=== PATIENT | female | born 1940 | race Caucasian/White ===

== ENCOUNTER 2016-12-16 19:12 | Emergency (ER) | payer BC, OTHER ==
[~2016-12-16] VITALS: Ht 170.2 cm; Wt 99.8 kg
[~2016-12-16 19:12] MED LIST: BENA20TA2 PO; GEMF600T3 PO
[2016-12-16] MEDS ORDERED: ONDANSETRON PF 4 MG/2 ML VIAL. IV ONE (20:30)
[2016-12-16 20:51] LABS: BASO % 1 % (0-3); EOS % 1 % (0-3); HEMATOCRIT 44.9 % (36.0-47.0); HEMOGLOBIN 15.8 g/dL (12.0-15.5); LYMPH % 22 % (24-48); MEAN CORPUSCULAR HEMOGLOBIN 31 pg (25-35); MEAN CORPUSCULAR HGB CONC 35 g/dL (31-37); MEAN CORPUSCULAR VOLUME 89 fL (79-100); MONO % 8 % (0-9); NEUT % 69 % (31-73); PLATELET COUNT 206 x10^3/uL (140-400); RED BLOOD COUNT 5.05 x10^6/uL (3.50-5.40); RED CELL DISTRIBUTION WIDTH 14.3 % (11.5-14.5); WHITE BLOOD COUNT 9.4 x10^3/uL (4.0-11.0)
[2016-12-16] MEDS ORDERED: ONDANSETRON ODT 4 MG TAB.RAPDIS. PO ONE (21:00)
[2016-12-16 21:26] LABS: CALCIUM 9.4 mg/dL (8.5-10.1); CREATININE 0.8 mg/dL (0.6-1.0); GFR 69.6; POTASSIUM 4.7 mmol/L (3.5-5.1)
[2016-12-16 21:32] LABS: ALBUMIN 3.7 g/dL (3.4-5.0); ALBUMIN/GLOBULIN RATIO 1.1 (1.0-1.7); TOTAL BILIRUBIN 0.2 mg/dL (0.2-1.0); TOTAL PROTEIN 7.2 g/dL (6.4-8.2)
--- NOTE | 2016-12-16 21:57 | RAD ---
PROCEDURE CT head without contrast dated 12/16/2016. HISTORY Dizziness and vertigo. TECHNIQUE Contiguous axial imaging of the head was performed from skull base to vertex.Exposure: One or more of the following individualized dose reduction techniques were utilized for this exam: 1. Automated exposure control. 2. Adjustment of the mA and/or kV according to patient size. 3. Use of iterative reconstruction technique. COMPARISON 04/11/2016. FINDINGS Ventricles and sulci are mildly prominent for age. No midline shift or mass effect. Mild patchy low density in the deep/subcortical periventricular white matter, unchanged. No hemorrhage or extra-axial collection. Posterior fossa and brainstem unremarkable. Visualized paranasal sinuses and mastoid air cells are clear. No acute calvarial abnormality. IMPRESSION - No evidence of acute intracranial hemorrhage or mass. - Mild chronic small vessel ischemic changes and atrophy. Electronically signed by: Anatoliy Nichols (December 16, 2016 21:55:53)
[2016-12-16 22:06] LABS: BILIRUBIN,URINE NEGATIVE (NEG); GLUCOSE,URINE NEGATIVE (NEG); NITRITE,URINE NEGATIVE (NEG); PROTEIN,URINE NEGATIVE (NEG-TRACE); UROBILINOGEN,URINE 0.2 mg/dL (0.2 mg/dL)
[2016-12-16 22:13] LABS: BACTERIA,URINE FEW /HPF (0-FEW); RBC,URINE OCC /HPF (0-2); SQUAMOUS EPITHELIAL CELL,UR FEW /LPF
[2016-12-16 22:28] VITALS: BP 141/65
--- NOTE | 2016-12-17 00:08 | ED.ADGEN ---
Past Medical History Past Medical History: High Cholesterol, Hypertension, Other Additional Past Medical Histor: Macular degeneration, vertigo Past Surgical History: Cholecystectomy, Hysterectomy, Other Additional Past Surgical Histo: ankle, breast biopsy, sinus Alcohol Use: None Drug Use: None Adult General Chief Complaint Chief Complaint: NAUSEA/VOMITING/DIARRHA HPI HPI Patient is a 76 year old history of chronic intermittent vertigo who presents with vertigo starting this morning. Patient reports a dizziness upon standing and walking early this morning along with nausea. Patient took meclizine 1 with symptomatic improvement. She is no longer nauseated and states she can walk without concern for Falling. Patient is concerned that she may have a TIA or stroke. She denies headache, change in vision, difficulty swallowing, extremity weakness or loss of sensation or leaning to one side. She reports mild headache, but states symptoms of vertigo are similar to previous episodes. Patient states she does not like to take meclizine more than once daily as she is very sensitive to medications. Review of Systems Review of Systems ROS as per HPI Current Medications Current Medications Current Medications Medications (Trade) Dose Ordered Sig/Mirna Start Time Stop Time Status Last Admin Dose Admin Ondansetron HCl (Zofran Odt) 4 mg 1X ONCE 12/16/16 21:00 12/16/16 21:01 DC 12/16/16 21:12 4 MG Ondansetron HCl (Zofran) 4 mg 1X ONCE 12/16/16 20:30 12/16/16 20:31 DC 12/16/16 20:41 4 MG Allergies Allergies Allergies Coded Allergies Type Severity Reaction Last Updated Verified No Known Drug Allergies 06/29/15 No Physical Exam Physical Exam Constitutional: Well developed, well nourished, no acute distress, non-toxic appearance. [] HENT: Normocephalic, atraumatic, bilateral external ears normal, oropharynx moist, no oral exudates, nose normal. [] Eyes: PERRLA, EOMI, conjunctiva normal, no discharge.horizontal nystagmus, fatigues on evaluation. Neck: Normal range of motion, no tenderness, supple, no stridor. [] Cardiovascular:Heart rate regular rhythm, no murmur [] Lungs & Thorax: Bilateral breath sounds clear to auscultation [] Abdomen: Bowel sounds normal, soft, no tenderness, no masses, no pulsatile masses. [] Skin: Warm, dry, no erythema, no rash. [] Back: No tenderness, no CVA tenderness. [] Extremities: No tenderness, no cyanosis, no clubbing, ROM intact, no edema. [] Neurologic: Alert and oriented X 3, cranial nerves II through XII grossly intact ,normal motor function, normal sensory function, no focal deficits noted. [] Psychologic: Affect normal, judgement normal, mood normal. [] Current Patient Data Vital Signs Vital Signs Date Time Temp Pulse Resp B/P (MAP) Pulse Ox O2 Delivery O2 Flow Rate FiO2 12/16/16 22:28 88 20 141/65 (90) 93 Room Air 12/16/16 19:55 98.5 98.5 Lab Values Laboratory Tests Test 12/16/16 20:35 12/16/16 21:00 12/16/16 21:50 White Blood Count 9.4 x10^3/uL (4.0-11.0) Red Blood Count 5.05 x10^6/uL (3.50-5.40) Hemoglobin 15.8 g/dL (12.0-15.5) H Hematocrit 44.9 % (36.0-47.0) Mean Corpuscular Volume 89 fL (79-100) Mean Corpuscular Hemoglobin 31 pg (25-35) Mean Corpuscular Hemoglobin Concent 35 g/dL (31-37) Red Cell Distribution Width 14.3 % (11.5-14.5) Platelet Count 206 x10^3/uL (140-400) Neutrophils (%) (Auto) 69 % (31-73) Lymphocytes (%) (Auto) 22 % (24-48) L Monocytes (%) (Auto) 8 % (0-9) Eosinophils (%) (Auto) 1 % (0-3) Basophils (%) (Auto) 1 % (0-3) Neutrophils # (Auto) 6.5 x10^3uL (1.8-7.7) Lymphocytes # (Auto) 2.0 x10^3/uL (1.0-4.8) Monocytes # (Auto) 0.7 x10^3/uL (0.0-1.1) Eosinophils # (Auto) 0.1 x10^3/uL (0.0-0.7) Basophils # (Auto) 0.0 x10^3/uL (0.0-0.2) Sodium Level 142 mmol/L (136-145) Potassium Level 4.7 mmol/L (3.5-5.1) Chloride Level 106 mmol/L (98-107) Carbon Dioxide Level 29 mmol/L (21-32) Anion Gap 7 (6-14) Blood Urea Nitrogen 15 mg/dL (7-20) Creatinine 0.8 mg/dL (0.6-1.0) Estimated GFR (Cockcroft-Gault) 69.6 BUN/Creatinine Ratio 19 (6-20) Glucose Level 111 mg/dL (70-99) H Calcium Level 9.4 mg/dL (8.5-10.1) Total Bilirubin 0.2 mg/dL (0.2-1.0) Aspartate Amino Transferase (AST) 39 U/L (15-37) H Alanine Aminotransferase (ALT) 54 U/L (14-59) Alkaline Phosphatase 88 U/L (46-116) Troponin I Quantitative < 0.017 ng/mL (0.000-0.055) Total Protein 7.2 g/dL (6.4-8.2) Albumin 3.7 g/dL (3.4-5.0) Albumin/Globulin Ratio 1.1 (1.0-1.7) Lipase 95 U/L (73-393) Urine Collection Type Unknown Urine Color Yellow Urine Clarity Clear Urine pH 5.0 Urine Specific [place] 1.015 Urine Protein Negative mg/dL (NEG-TRACE) Urine Glucose (UA) Negative mg/dL (NEG) Urine Ketones (Stick) Negative mg/dL (NEG) Urine Blood Trace (NEG) Urine Nitrite Negative (NEG) Urine Bilirubin Negative (NEG) Urine Urobilinogen Dipstick 0.2 mg/dL (0.2 mg/dL) Urine Leukocyte Esterase Trace (NEG) Urine RBC Occ /HPF (0-2) Urine WBC 1-4 /HPF (0-4) Urine Squamous Epithelial Cells Few /LPF Urine Bacteria Few /HPF (0-FEW) Urine Mucus Slight /LPF Laboratory Tests 12/16/16 20:35 Laboratory Tests 12/16/16 21:00 EKG EKG [EKG: Normal sinus rhythm, no acute ST-T wave changes.] Radiology/Procedures Radiology/Procedures [CT head: Nonacute.] Course & Med Decision Making Course & Med Decision Making Pertinent Labs and Imaging studies reviewed. (See chart for details) [Patient's dizziness resolved with meclizine in the emergency department. CT head nonacute, no focal neurologic deficits noted on evaluation. Recommend continued supportive care with PCP follow-up if symptoms persist. Return precautions reviewed. Patient verbalizes understanding and agreement with discharge instructions prior to departure.] Dragon Disclaimer Dragon Disclaimer This electronic medical record was generated, in whole or in part, using a voice recognition dictation system. FANI ALVAREZ DO December 17, 2016 00:08
--- NOTE | 2016-12-17 06:47 | EKG ---
[facility] [address] [place] [address] Test Date: 2016-12-16 Test Time: 20:32:45 Pat Name: MICKIE MUSE Department: Room: Gender: F Floral Manager: : 1940 Requested By: FANI ALVAREZ Order Number: [id number] Reading MD: Jaspal Snyder Measurements Intervals [place] Rate: 96 P: 50 RI: 230 QRS: 22 QRSD: 72 T: 56 QT: 340 QTc: 430 Interpretive Statements SINUS RHYTHM PROLONGED RI INTERVAL Electronically Signed On 12-17-2016 10:54:27 CDT by Jaspal Snyder
== END 2016-12-16 22:50 | disposition home or self-care (01) ==
LOC: ER 19:12
DX: R42 Dizziness and giddiness (principal); R11.0 Nausea; I10 Essential (primary) hypertension; E78.00 Pure hypercholesterolemia, unspecified; Z90.49 Acquired absence of other specified parts of digestive tract; Z90.710 Acquired absence of both cervix and uterus
CPT/HCPCS: 36415; 70450; 80053; 81001; 83690; 84484; 85027; 87086; 93005; 96374; 99285; J2405; Q0162

== ENCOUNTER → 2017-01-27 | Outpatient (CLI) | payer BC, OTHER ==
--- NOTE | 2017-01-27 15:15 | RAD ---
DATE: January 27, 2017 EXAM: DIGITAL SCREEN BILAT W/CAD HISTORY: Screening study. COMPARISON: 2013 through 2015 This study was interpreted with the benefit of Computerized Aided Detection (CAD). FINDINGS: The breast parenchyma shows scattered fibroglandular densities. There are no dominant suspicious masses, suspicious microcalcifications or evidence of architectural distortion. Right breast nodularity is stable. IMPRESSION: No mammographic indicators for malignancy. BI-RADS CATEGORY: 2 BENIGN FINDING RECOMMENDED FOLLOW-UP: 12M 12 MONTH FOLLOW-UP PQRS compliance statement: Patient information was entered into a reminder system with a target due date January 28, 2018 for the next mammogram. Mammography is a sensitive method for finding small breast cancers, but it does not detect them all and is not a substitute for careful clinical examination. A negative mammogram does not negate a clinically suspicious finding and should not result in delay in biopsying a clinically suspicious abnormality. "Our facility is accredited by the [employer]ammography [employer]." The patient's breast density may affect the ability of mammography to detect breast cancer. There are 4 categories of breast density, A, B, C and D. Breast density A means that most of the breast tissue is replaced with adipose tissue and therefore is not dense. Breast density B means that the breast tissue is mildly dense and scattered. Breast density C means that the breast tissue is heterogeneously dense. Breast density D means that the breast tissue is very dense. Breast densities especially C and D may decrease the sensitivity of mammography to detect breast cancer. Therefore, the patient may benefit from 3-D breast mammography (3D breast tomography) as a part of their screening mammogram. Insurance may or may not pay for this additional imaging. The patient's breast density based on today's mammogram is category B.
== END | disposition home or self-care (01) ==
LOC: MAMMO 13:01
PROVIDERS: ATTEND Family Medicine
DX: Z12.31 Encounter for screening mammogram for malignant neoplasm of breast (principal)
CPT/HCPCS: G0202; 77067

== ENCOUNTER → 2017-05-22 | Day surgery (SDC) | payer BC, OTHER ==
[~2017-05-22] MED LIST changes: +IV RINGERS,LACTATED 1000ML 1,000 ML IV ONE; +LIDOCAINE 2% PF Vial for OR 5 ML VIAL. ONE; +LORA0.5T PO; +PROPOFOL 60 ML IV ONE; +TRIA1CAP3 PO
[2017-05-22 11:39] VITALS: BP 139/62
== END | disposition home or self-care (01) ==
LOC: ENDOS 08:53
PROVIDERS: ATTEND Internal Medicine Gastroenterology
DX: Z09 Encounter for follow-up examination after completed treatment for conditions other than malignant neoplasm (principal); Z87.19 Personal history of other diseases of the digestive system; D12.2 Benign neoplasm of ascending colon; K64.0 First degree hemorrhoids; K21.0 Gastro-esophageal reflux disease with esophagitis; K31.89 Other diseases of stomach and duodenum; E78.00 Pure hypercholesterolemia, unspecified; I10 Essential (primary) hypertension; F41.9 Anxiety disorder, unspecified; Z90.710 Acquired absence of both cervix and uterus; Z90.49 Acquired absence of other specified parts of digestive tract
CPT/HCPCS: 43239; 45385; J2704; J2001

== ENCOUNTER → 2017-12-26 | Outpatient (CLI) | payer BC, OTHER ==
[~2017-12-26] MED LIST changes: -BENA20TA2 PO; +CONTRAST GIVEN MC; -GEMF600T3 PO; -IV RINGERS,LACTATED 1000ML 1,000 ML IV ONE; -LIDOCAINE 2% PF Vial for OR 5 ML VIAL. ONE; -LORA0.5T PO; -PROPOFOL 60 ML IV ONE; -TRIA1CAP3 PO
[2017-12-26] MEDS: IOHEXOL 240 MG/ML 50ML VIAL. PO (09:30)
[2017-12-26] MEDS: IOHEXOL 300 MG/ML 100ML VIAL. IV (09:30)
== END | disposition home or self-care (01) ==
LOC: CT 11:59
DX: C18.2 Malignant neoplasm of ascending colon (principal); D12.2 Benign neoplasm of ascending colon
CPT/HCPCS: 71260; 74177; Q9966; Q9967

== ENCOUNTER → 2018-01-28 | Outpatient (CLI) | payer BC, OTHER | END | disposition home or self-care (01) | LOC: MAMMO 08:00 | DX: Z12.31 Encounter for screening mammogram for malignant neoplasm of breast (principal) | CPT/HCPCS: 77063; 77067 ==

== ENCOUNTER 2018-03-07 19:14 | Emergency (ER) | payer BC, OTHER ==
[2018-03-07 20:18] LABS: ADD MAN DIFF? NO
[2018-03-07] MEDS: ONDANSETRON PF 4 MG/2 ML VIAL. IV (20:19)
[2018-03-07 20:20] LABS: BASO # 0.1 x10^3/uL (0.0-0.2); BASO % 1 % (0-3); EOS # 0.1 x10^3/uL (0.0-0.7); EOS % 1 % (0-3); HEMATOCRIT 48.9 % (36.0-47.0); HEMOGLOBIN 16.8 g/dL (12.0-15.5); LYMPH # 1.7 x10^3/uL (1.0-4.8); LYMPH % 21 % (24-48); MEAN CORPUSCULAR HEMOGLOBIN 31 pg (25-35); MEAN CORPUSCULAR HGB CONC 34 g/dL (31-37); MEAN CORPUSCULAR VOLUME 89 fL (79-100); MONO # 0.5 x10^3/uL (0.0-1.1); MONO % 7 % (0-9); NEUT # 5.7 x10^3uL (1.8-7.7); NEUT % 71 % (31-73); PLATELET COUNT 153 x10^3/uL (140-400); RED BLOOD COUNT 5.49 x10^6/uL (3.50-5.40); RED CELL DISTRIBUTION WIDTH 14.4 % (11.5-14.5)
[2018-03-07] MEDS: IV NORMAL SALINE 1000ML BAG 1,000 ML IV (20:20)
[2018-03-07 20:22] LABS: BILIRUBIN,URINE NEGATIVE (NEG); CLARITY,URINE CLEAR; COLOR,URINE YELLOW; GLUCOSE,URINE NEGATIVE (NEG); NITRITE,URINE NEGATIVE (NEG); PH,URINE 7.5; PROTEIN,URINE NEGATIVE (NEG-TRACE); UROBILINOGEN,URINE 0.2 mg/dL (0.2 mg/dL)
[2018-03-07 20:29] LABS: AMPHETAMINE/METHAMPHETAMINE NEG (NEG); BARBITURATES NEG (NEG); BENZODIAZEPINES NEG (NEG); CANNABINOIDS NEG (NEG); COCAINE NEG (NEG); ETHANOL, URINE NEG (NEG); METHADONE NEG (NEG); OPIATES NEG (NEG); PHENCYCLIDINE NEG (NEG)
[2018-03-07 20:34] LABS: BACTERIA,URINE MODERATE /HPF (0-FEW); SQUAMOUS EPITHELIAL CELL,UR MOD /LPF
[2018-03-07 20:35] LABS: RBC,URINE 0 /HPF (0-2); WBC,URINE OCC /HPF (0-4)
[2018-03-07 21:00] LABS: ANION GAP 11 (6-14); BLOOD UREA NITROGEN 10 mg/dL (7-20); BUN/CREATININE RATIO 14 (6-20); CARBON DIOXIDE 26 mmol/L (21-32); CHLORIDE 104 mmol/L (98-107); CREATININE 0.7 mg/dL (0.6-1.0); GFR 80.9; GLUCOSE 115 mg/dL (70-99); POTASSIUM 3.5 mmol/L (3.5-5.1); SODIUM 141 mmol/L (136-145)
[2018-03-07 21:06] LABS: ALBUMIN 3.6 g/dL (3.4-5.0); ALBUMIN/GLOBULIN RATIO 0.9 (1.0-1.7); ALK PHOS 92 U/L (46-116); ALT (SGPT) 104 U/L (14-59); AST (SGOT) 63 U/L (15-37); TOTAL BILIRUBIN 0.5 mg/dL (0.2-1.0); TOTAL PROTEIN 7.5 g/dL (6.4-8.2)
[2018-03-07 21:08] LABS: TROPONINI < 0.017 ng/mL (0.000-0.055)
== END 2018-03-07 22:29 | disposition home or self-care (01) ==
LOC: ER 22:29
DX: R42 Dizziness and giddiness (principal); R11.2 Nausea with vomiting, unspecified; E86.0 Dehydration; R74.0 Nonspecific elevation of levels of transaminase and lactic acid dehydrogenase [LDH]; F41.9 Anxiety disorder, unspecified; E78.00 Pure hypercholesterolemia, unspecified; I10 Essential (primary) hypertension; Z90.49 Acquired absence of other specified parts of digestive tract; Z90.710 Acquired absence of both cervix and uterus
CPT/HCPCS: 36415; 80053; 80307; 81001; 83735; 84484; 85025; 87086; 93005; 96361; 96374; 96375; 99285-25; J2060; J2405; J7030

== ENCOUNTER 2018-05-25 14:11 | Emergency (ER) | payer BC, OTHER ==
[~2018-05-25] VITALS: Ht 170.2 cm; Wt 100.7 kg
[~2018-05-25 14:11] MED LIST changes: +BENA20TA4 PO; -CONTRAST GIVEN MC; +GEMF600T4 PO; +LORA0.5T PO; +NITR100C62 PO; +ONDA4TAB10 SL; +PHEN-318 PO; +TRIA1CAP3 PO
[2018-05-25 15:09] LABS: BASO % 1 % (0-3); EOS # 0.1 x10^3/uL (0.0-0.7); EOS % 2 % (0-3); HEMATOCRIT 45.3 % (36.0-47.0); HEMOGLOBIN 15.8 g/dL (12.0-15.5); LYMPH # 2.1 x10^3/uL (1.0-4.8); LYMPH % 31 % (24-48); MEAN CORPUSCULAR HEMOGLOBIN 32 pg (25-35); MEAN CORPUSCULAR HGB CONC 35 g/dL (31-37); MEAN CORPUSCULAR VOLUME 91 fL (79-100); MONO # 0.5 x10^3/uL (0.0-1.1); MONO % 8 % (0-9); NEUT # 4.1 x10^3uL (1.8-7.7); NEUT % 59 % (31-73); PLATELET COUNT 154 x10^3/uL (140-400); RED CELL DISTRIBUTION WIDTH 14.5 % (11.5-14.5); WHITE BLOOD COUNT 6.9 x10^3/uL (4.0-11.0)
[2018-05-25 15:16] LABS: CALCIUM 10.1 mg/dL (8.5-10.1); CREATININE 0.7 mg/dL (0.6-1.0); GFR 80.9; POTASSIUM 3.9 mmol/L (3.5-5.1)
--- NOTE | 2018-05-25 15:18 | RAD ---
PQRS Compliance Statement: One or more of the following individualized dose reduction techniques were utilized for this examination: 1. Automated exposure control 2. Adjustment of the mA and/or kV according to patient size 3. Use of iterative reconstruction technique CT HEAD WITHOUT CONTRAST History: HEADACHE, HX OF TIA Comparison: CT head without contrast, December 16, 2016. Technique: Axial images are obtained of the head from the skull base through the vertex without IV contrast. Findings: No mass-effect, midline shift, extra-axial fluid collection, hemorrhage, or obvious acute infarction is identified. Basilar cisterns are patent. The ventricles and sulci are normal for patient age. There is periventricular white matter hypoattenuation. This is a nonspecific finding but is commonly due to chronic small vessel ischemic disease. Bone windows demonstrate no acute calvarial abnormality. The visualized paranasal sinuses are clear. Mastoid air cells are well aerated. IMPRESSION: 1. No acute intracranial abnormality. 2. Mild periventricular white matter changes of chronic small vessel ischemic disease. Electronically signed by: Xu Devries MD (05/25/2018 3:15 PM) [id number]
[2018-05-25 15:22] LABS: ALBUMIN 3.7 g/dL (3.4-5.0); ALBUMIN/GLOBULIN RATIO 0.8 (1.0-1.7); TOTAL BILIRUBIN 0.4 mg/dL (0.2-1.0); TOTAL PROTEIN 8.1 g/dL (6.4-8.2)
[2018-05-25 15:39] LABS: BILIRUBIN,URINE NEGATIVE (NEG); CLARITY,URINE CLEAR; COLOR,URINE YELLOW; NITRITE,URINE NEGATIVE (NEG); PROTEIN,URINE NEGATIVE (NEG-TRACE); UROBILINOGEN,URINE 0.2 mg/dL (0.2 mg/dL)
[2018-05-25] MEDS ORDERED: IV NORMAL SALINE 1000ML BAG 1,000 ML IV ONE (15:45)
[2018-05-25 16:07] LABS: RBC,URINE OCC /HPF (0-2)
[2018-05-25 16:08] LABS: BACTERIA,URINE MODERATE /HPF (0-FEW); SQUAMOUS EPITHELIAL CELL,UR MANY /LPF
--- NOTE | 2018-05-25 17:11 | PHYS DOC ---
Past Medical History Past Medical History: Anxiety, High Cholesterol, Hypertension, TIA, Other Additional Past Medical Histor: Macular degeneration, vertigo Past Surgical History: Cholecystectomy, Hysterectomy, Other Additional Past Surgical Histo: ankle, breast biopsy, sinus Additional Information: .05 PPD Alcohol Use: None Drug Use: None Adult General Chief Complaint Chief Complaint: HEADACHE HPI HPI Patient is a 77 year old [f__sex] who presents with [] Review of Systems Review of Systems Constitutional: Denies fever or chills [] Eyes: Denies change in visual acuity, redness, or eye pain [] HENT: Denies nasal congestion or sore throat [] Respiratory: Denies cough or shortness of breath [] Cardiovascular: No additional information not addressed in HPI [] GI: Denies abdominal pain, nausea, vomiting, bloody stools or diarrhea [] : Denies dysuria or hematuria [] Musculoskeletal: Denies back pain or joint pain [] Integument: Denies rash or skin lesions [] Neurologic: Denies headache, focal weakness or sensory changes [] Endocrine: Denies polyuria or polydipsia [] All other systems were reviewed and found to be within normal limits, except as documented in this note. Current Medications Current Medications Current Medications Medications (Trade) Dose Ordered Sig/Mirna Start Time Stop Time Status Last Admin Dose Admin Sodium Chloride 1,000 ml @ 1,000 mls/hr 1X ONCE 05/25/18 15:45 05/25/18 16:44 DC 05/25/18 16:00 1,000 MLS/HR Allergies Allergies Allergies Coded Allergies Type Severity Reaction Last Updated Verified No Known Drug Allergies 05/22/17 No Physical Exam Physical Exam Constitutional: Well developed, well nourished, no acute distress, non-toxic appearance. [] HENT: Normocephalic, atraumatic, bilateral external ears normal, oropharynx moist, no oral exudates, nose normal. [] Eyes: PERRLA, EOMI, conjunctiva normal, no discharge. [] Neck: Normal range of motion, no tenderness, supple, no stridor. [] Cardiovascular:Heart rate regular rhythm, no murmur [] Lungs & Thorax: Bilateral breath sounds clear to auscultation [] Abdomen: Bowel sounds normal, soft, no tenderness, no masses, no pulsatile masses. [] Skin: Warm, dry, no erythema, no rash. [] Back: No tenderness, no CVA tenderness. [] Extremities: No tenderness, no cyanosis, no clubbing, ROM intact, no edema. [] Neurologic: Alert and oriented X 3, normal motor function, normal sensory function, no focal deficits noted. [] Psychologic: Affect normal, judgement normal, mood normal. [] Current Patient Data Vital Signs Vital Signs Date Time Temp Pulse Resp B/P (MAP) Pulse Ox O2 Delivery O2 Flow Rate FiO2 05/25/18 14:18 97.9 89 20 165/75 (105) 97 Room Air 97.9 Lab Values Laboratory Tests Test 05/25/18 14:56 05/25/18 15:14 05/25/18 15:24 White Blood Count 6.9 x10^3/uL (4.0-11.0) Red Blood Count 5.00 x10^6/uL (3.50-5.40) Hemoglobin 15.8 g/dL (12.0-15.5) H Hematocrit 45.3 % (36.0-47.0) Mean Corpuscular Volume 91 fL (79-100) Mean Corpuscular Hemoglobin 32 pg (25-35) Mean Corpuscular Hemoglobin Concent 35 g/dL (31-37) Red Cell Distribution Width 14.5 % (11.5-14.5) Platelet Count 154 x10^3/uL (140-400) Neutrophils (%) (Auto) 59 % (31-73) Lymphocytes (%) (Auto) 31 % (24-48) Monocytes (%) (Auto) 8 % (0-9) Eosinophils (%) (Auto) 2 % (0-3) Basophils (%) (Auto) 1 % (0-3) Neutrophils # (Auto) 4.1 x10^3uL (1.8-7.7) Lymphocytes # (Auto) 2.1 x10^3/uL (1.0-4.8) Monocytes # (Auto) 0.5 x10^3/uL (0.0-1.1) Eosinophils # (Auto) 0.1 x10^3/uL (0.0-0.7) Basophils # (Auto) 0.0 x10^3/uL (0.0-0.2) Sodium Level 142 mmol/L (136-145) Potassium Level 3.9 mmol/L (3.5-5.1) Chloride Level 105 mmol/L (98-107) Carbon Dioxide Level 29 mmol/L (21-32) Anion Gap 8 (6-14) Blood Urea Nitrogen 11 mg/dL (7-20) Creatinine 0.7 mg/dL (0.6-1.0) Estimated GFR (Cockcroft-Gault) 80.9 BUN/Creatinine Ratio 16 (6-20) Glucose Level 100 mg/dL (70-99) H Calcium Level 10.1 mg/dL (8.5-10.1) Total Bilirubin 0.4 mg/dL (0.2-1.0) Aspartate Amino Transferase (AST) 53 U/L (15-37) H Alanine Aminotransferase (ALT) 90 U/L (14-59) H Alkaline Phosphatase 97 U/L (46-116) Total Protein 8.1 g/dL (6.4-8.2) Albumin 3.7 g/dL (3.4-5.0) Albumin/Globulin Ratio 0.8 (1.0-1.7) L Lactic Acid Level 1.5 mmol/L (0.4-2.0) Urine Collection Type Unknown Urine Color Yellow Urine Clarity Clear Urine pH 6.0 Urine Specific [place] 1.010 Urine Protein Negative mg/dL (NEG-TRACE) Urine Glucose (UA) Negative mg/dL (NEG) Urine Ketones (Stick) Negative mg/dL (NEG) Urine Blood Negative (NEG) Urine Nitrite Negative (NEG) Urine Bilirubin Negative (NEG) Urine Urobilinogen Dipstick 0.2 mg/dL (0.2 mg/dL) Urine Leukocyte Esterase Small (NEG) Urine RBC Occ /HPF (0-2) Urine WBC 1-4 /HPF (0-4) Urine Squamous Epithelial Cells Many /LPF Urine Bacteria Moderate /HPF (0-FEW) Urine Mucus Slight /LPF Laboratory Tests 05/25/18 14:56 Laboratory Tests 05/25/18 14:56 EKG EKG [] Radiology/Procedures Radiology/Procedures [] Course & Med Decision Making Course & Med Decision Making Pertinent Labs and Imaging studies reviewed. (See chart for details) [] Dragon Disclaimer Dragon Disclaimer This electronic medical record was generated, in whole or in part, using a voice recognition dictation system. Departure Departure Impression: Primary Impression: Headache Disposition: 01 HOME, SELF-CARE Condition: STABLE Referrals: OTIS CHRISTENSEN MD (PCP) Patient Instructions: General Headache Without Cause Additional Instructions: Follow-up with your primary care provider in 2 days for recheck. If worsening return immediately to the emergency department. BETH ROGEL APRN May 25, 2018 17:11
[2018-05-25 17:47] VITALS: BP 149/67
== END 2018-05-25 17:48 | disposition home or self-care (01) ==
LOC: ER 14:11
DX: R51 Headache (principal); I10 Essential (primary) hypertension; E78.00 Pure hypercholesterolemia, unspecified; Z86.73 Personal history of transient ischemic attack (TIA), and cerebral infarction without residual deficits; Z90.49 Acquired absence of other specified parts of digestive tract; Z90.710 Acquired absence of both cervix and uterus
CPT/HCPCS: 36415; 70450; 80053; 81001; 83605; 85025; 87086; 99285; J7030

== ENCOUNTER → 2018-11-05 | Day surgery (SDC) | payer BC, OTHER ==
[~2018-11-05] MED LIST changes: -GEMF600T4 PO; +GEMF600T8 PO; +HYDROmorphone 2 MG/ML VIAL IV PRN; +IV RINGERS,LACTATED 1000ML 1,000 ML IV SCH; +LIDOCAINE 2% PF 5 ML VIAL. ONE; +MORPHINE SULFATE 2 MG/ML VIAL. IV PRN; +ONDANSETRON PF 4 MG/2 ML VIAL. IV PRN; +PROCHLORPERAZINE 10 MG/2 ML VIAL. IV PRN; +PROPOFOL 20 ML IV ONE; +fentaNYL PF VIAL 100 MCG/2 ML VIAL IV PRN
[2018-11-05 10:04] VITALS: BP 163/74
--- NOTE | 2018-11-06 11:09 | PATHOLOGY ---
[facility] Accession Number: [id number] . 01 Material submitted: . PART A: SIGMOID POLYP BIOPSY PART B: RECTAL POLYP BIOPSY . 01 Clinical history: . Hx polyps, family HX CRC . 02 Diagnosis: A. Colon biopsies, sigmoid polyp: - Hyperplastic polyp. . B. Colorectal biopsies, rectal polyps: - Hyperplastic polyps. . (JPM:mm; 11/06/2018) [facility]/11/06/2018 . 02 Comment: There are no adenomatous changes or evidence of malignancy. . (JPM:mml; 11/06/2018) . 02 Electronically signed: . Lenny Garcia MD, Pathologist NPI- [id number] . 01 Gross description: . A. Received in formalin labeled "Holly Holt, sigmoid polyp BX," are 2 segments of gomez soft tissue measuring 0.7 x 0.3 x 0.2 cm in aggregate dimensions and ranging from 0.3 to 0.4 cm in maximum dimension. The specimen is submitted entirely in cassette A1. . B. Received in formalin labeled "Holly Holt, rectal polyp BX," are 3 segments of gomez soft tissue measuring 0.6 x 0.4 x 0.2 cm in aggregate dimensions and ranging from 0.2 to 0.3 cm in maximum dimension. The specimen is submitted entirely in cassette B1. (TSD; 11/05/2018) TOB/TOB . 02 Pathologist provided ICD-10: K63.5, K62.1 . 02 CPT . 077709, 092064 Specimen Comment: A courtesy copy of this report has been sent to Specimen Comment: [phone], . Specimen Comment: Report sent to / DR CHRISTENSEN Performed at: 01 [facility] [address], [place], [place] [id number] MD Nick Lang MD Phone: [phone] Performed at: 02 [facility] [address] [place], [place] [id number] MD Lenny Garcia MD Phone: [phone]
== END | disposition home or self-care (01) ==
LOC: SURG 08:22
PROVIDERS: ATTEND Internal Medicine Gastroenterology
DX: Z09 Encounter for follow-up examination after completed treatment for conditions other than malignant neoplasm (principal); K63.5 Polyp of colon; K62.1 Rectal polyp; K64.0 First degree hemorrhoids; Z86.010 Personal history of colon polyps; Z98.0 Intestinal bypass and anastomosis status; T81.89XA Other complications of procedures, not elsewhere classified, initial encounter; F41.9 Anxiety disorder, unspecified; K21.9 Gastro-esophageal reflux disease without esophagitis; E78.00 Pure hypercholesterolemia, unspecified; I10 Essential (primary) hypertension; Z82.3 Family history of stroke; Z82.49 Family history of ischemic heart disease and other diseases of the circulatory system; Z72.89 Other problems related to lifestyle; F17.210 Nicotine dependence, cigarettes, uncomplicated; Z79.899 Other long term (current) drug therapy; Z90.49 Acquired absence of other specified parts of digestive tract; Z90.710 Acquired absence of both cervix and uterus; Z98.890 Other specified postprocedural states; Y83.2 Surgical operation with anastomosis, bypass or graft as the cause of abnormal reaction of the patient, or of later complication, without mention of misadventure at the time of the procedure; Y92.89 Other specified places as the place of occurrence of the external cause
CPT/HCPCS: 45380; J2001; J2704; 88305

== ENCOUNTER → 2018-12-24 | Outpatient (CLI) | payer BC, OTHER ==
[2018-11-05 10:04] VITALS: BP 163/74
[~2018-12-24] MED LIST changes: +CONTRAST GIVEN. MC PRN; -HYDROmorphone 2 MG/ML VIAL IV PRN; +IOHEXOL 240 MG/ML 50ML VIAL. PO ONE; +IOHEXOL 300 MG/ML 100ML VIAL. IV ONE; -IV RINGERS,LACTATED 1000ML 1,000 ML IV SCH; -LIDOCAINE 2% PF 5 ML VIAL. ONE; -MORPHINE SULFATE 2 MG/ML VIAL. IV PRN; -ONDANSETRON PF 4 MG/2 ML VIAL. IV PRN; -PROCHLORPERAZINE 10 MG/2 ML VIAL. IV PRN; -PROPOFOL 20 ML IV ONE; -fentaNYL PF VIAL 100 MCG/2 ML VIAL IV PRN
--- NOTE | 2018-12-24 15:31 | RAD ---
CT of the chest, abdomen and pelvis with contrast, 12/24/2018: HISTORY: Colonic malignancy Multidetector CT imaging was performed following oral and IV administration of contrast. Comparison is made to a study from 12/26/2017. Several very tiny scattered nodules in both lungs are unchanged suggesting an inflammatory or granulomatous origin. There is minimal dependent atelectasis in both lungs. Respiratory motion artifact degrades image quality in the lung bases. There is no evidence of pleural fluid. There is mild calcific plaquing of the thoracic aorta without evidence of aneurysm. No mediastinal or hilar adenopathy is seen. There is a suggestion of patchy fatty change in the liver. No discrete hepatic mass is evident. The gallbladder appears to be surgically absent. No pancreatic abnormality is seen. The spleen is of normal size. There is a small cyst arising from the lateral aspect of the right kidney. The kidneys show no evidence of obstruction. The adrenal glands are unremarkable. Mild aortoiliac calcific plaquing is present without evidence of aneurysm. No abdominal or pelvic adenopathy is seen. The uterus is surgically absent. There has been a right hemicolectomy. The bowel loops are not dilated. A small hiatal hernia is noted. No free fluid is evident in the abdomen or pelvis. Mild scattered degenerative changes are present in the spine. IMPRESSION: 1. Stable tiny pulmonary nodules which are likely postinflammatory. 2. Additional miscellaneous chronic findings as described above. 3. No significant change since 12/26/2017. PQRS Compliance Statement: One or more of the following individualized dose reduction techniques were utilized for this examination: 1. Automated exposure control 2. Adjustment of the mA and/or kV according to patient size 3. Use of iterative reconstruction technique Electronically signed by: Manav Lopes MD (12/24/2018 3:28 PM) [facility]
== END | disposition home or self-care (01) ==
LOC: CT 13:38
PROVIDERS: ATTEND Internal Medicine Hematology & Oncology
DX: C18.2 Malignant neoplasm of ascending colon (principal); R91.8 Other nonspecific abnormal finding of lung field; K44.9 Diaphragmatic hernia without obstruction or gangrene
CPT/HCPCS: 71260; 74177; Q9967

== ENCOUNTER → 2019-05-05 | Outpatient (CLI) | payer BC, OTHER ==
[2019-01-14 11:35] VITALS: BP 156/62
[~2019-05-05] MED LIST changes: -CONTRAST GIVEN. MC PRN; -IOHEXOL 240 MG/ML 50ML VIAL. PO ONE; -IOHEXOL 300 MG/ML 100ML VIAL. IV ONE; +METR500T PO
--- NOTE | 2019-05-07 08:44 | RAD ---
DATE: 05/05/2019 EXAM: MAMMO ARELY SCREENING BILATERAL HISTORY: Routine screening COMPARISON: The innominate is in the l and then there is the unit one thing that sounded clear, 10 This study was interpreted with the benefit of Computerized Aided Detection (CAD). Breast Density: SCATTERED The breast parenchyma shows scattered fibroglandular densities. Breast parenchyma level B. FINDINGS: Distortion is questioned on tomosynthesis imaging at the 9:00 aspect on CC images and this is located approximately 5.6 cm from nipple. Multiple small masses are present involving the breasts and are similar upon correlation with prior exams. No suspicious new masses. No suspicious calcifications. IMPRESSION: Right breast distortion suspected. BI-RADS CATEGORY: 0 INCOMPLETE: NEEDS ADDITIONAL IMAGING EVALUATION AND/OR PRIOR MAMMOGRAMS FOR COMPARISON. RECOMMENDED FOLLOW-UP: ADD ADDITIONAL IMAGING. Spot compression tomosynthesis imaging of the right outer breast is recommended. Ultrasound may be needed. PQRS compliance statement: Patient information was entered into a reminder system with a target due date for the next mammogram. Mammography is a sensitive method for finding small breast cancers, but it does not detect them all and is not a substitute for careful clinical assessment. A negative mammogram does not negate a clinically suspicious finding and should not result in delay in biopsying a clinically suspicious abnormality. "Our facility is accredited by the [employer] Mammography [employer]."
== END | disposition home or self-care (01) ==
LOC: MAMMO 10:52
PROVIDERS: ATTEND Family Medicine
DX: N64.89 Other specified disorders of breast (principal); Z12.31 Encounter for screening mammogram for malignant neoplasm of breast
CPT/HCPCS: 77063; 77067

== ENCOUNTER 2020-01-07 16:49 | Emergency (ER) | payer BC, OTHER ==
[~2020-01-07] VITALS: Ht 170.2 cm; Wt 90.9 kg
[2020-01-07] MEDS ORDERED: cloNIDine HCL 0.1 MG TABLET PO ONE (17:45)
--- NOTE | 2020-01-07 18:10 | RAD ---
CT HEAD WO CONTRAST Date: 01/07/2020 5:39 PM Clinical Indication: Reason: HEADACHE / Spl. Instructions: / History: Comparison: 05/25/2018. Technique: 5 mm axial tomographic images were obtained of the head without contrast. These were viewed on brain and bone windows. One or more of the following dose reduction techniques were utilized: Automated exposure control (AEC), Adjustment of mA and/or kV according to patient size, Use of iterative reconstruction technique such as ASiR, CT scan done according to ALARA and image gently/image wisely Findings: The brain parenchyma is normal in attenuation. No intra- or extra-axial mass or fluid collection. No acute hemorrhage. The ventricles are normal in size, shape, and morphology. The corrales-white matter junction is normal. The subarachnoid cisterns are patent. The visualized paranasal sinuses are normal. The visualized portions of the orbits and globes are normal. Opacification of the right middle ear cavity and mastoid air cells. The wooden tank erector topogram shows no lytic lesion or fracture. Impression: 1. No acute intracranial process. 2. Opacification of the right middle ear cavity and mastoid air cells, which could represent otomastoiditis. Electronically signed by: Amauri Jorgensen MD (01/07/2020 6:07 PM) [facility]
--- NOTE | 2020-01-07 18:17 | RAD ---
Exam: Chest one view INDICATION: Cough TECHNIQUE: Frontal view of the chest Comparisons: None FINDINGS: The cardiomediastinal silhouette and pulmonary vessels are within normal limits. The lung and pleural spaces are clear. IMPRESSION: No acute cardiopulmonary process. Electronically signed by: Elías Dempsey MD (01/07/2020 6:13 PM) [id number]
--- NOTE | 2020-01-07 18:19 | PHYS DOC ---
Past Medical History Past Medical History: Anxiety, High Cholesterol, Hypertension, TIA, Other Additional Past Medical Histor: Macular degeneration, vertigo (JUSTIN BOSWELL DO) Past Surgical History: Cholecystectomy, Hysterectomy, Other Additional Past Surgical Histo: ankle, breast biopsy, sinus (JUSTIN BOSWELL DO) Smoking Status: Light Tobacco Smoker Alcohol Use: None Drug Use: None (JUSTIN BOSWELL DO) General Adult EDM: Chief Complaint: HYPERTENSION HPI: HPI: Patient is a 79 year old female presented to ER today due to headache, right earache. Patient has a history of chronic right ear infection for about 6 m onths. Patient has been evaluated by ENT doctor, has been on multiple different medication, antibiotic eardrop, she continues to have ear pain and drainage. Since the pandemic she was not able to see her ENT doctor. She is scheduled to see her ENT doctor in February. Patient has a history of hypertension, she said her blood pressure has been elevated, she also complained of headache right ear pain. Patient is scheduled to take her blood pressure medication tonight. Patient denies any fever, no chest pain. Patient also complains of a dry cough for several weeks. Patient said she had not been exposed to anybody who tested positive for coronavirus. (JUSTIN BOSWELL DO) Review of Systems: Review of Systems: Constitutional: Denies fever or chills. [] Eyes: Denies change in visual acuity. [] HENT: Denies nasal congestion or sore throat. [] Respiratory: Denies cough or shortness of breath. [] Cardiovascular: Denies chest pain or edema. [] GI: Denies abdominal pain, nausea, vomiting, bloody stools or diarrhea. [] : Denies dysuria. [] Musculoskeletal: Denies back pain or joint pain. [] Integument: Denies rash. [] Neurologic: Positive for headache, denies focal weakness or sensory changes. Endocrine: Denies polyuria or polydipsia. [] Lymphatic: Denies swollen glands. [] Psychiatric: Denies depression or anxiety. [] (JUSTIN BOSWELL DO) Heart Score: Risk Factors: Risk Factors: DM, Current or recent (<one month) smoker, HTN, HLP, family history of CAD, obesity. Risk Scores: Score 0 - 3: 2.5% MACE over next 6 weeks - Discharge Home Score 4 - 6: 20.3% MACE over next 6 weeks - Admit for Clinical Observation Score 7 - 10: 72.7% MACE over next 6 weeks - Early Invasive Strategies (JUSTIN BOSWELL DO) Current Medications: Current Medications Medications (Trade) Dose Ordered Sig/Mirna Start Time Stop Time Status Last Admin Dose Admin Clonidine HCl (Catapres) 0.2 mg 1X ONCE 01/07/20 17:45 01/07/20 17:46 DC 01/07/20 18:09 0.2 MG (JUSTIN BOSWELL DO) Allergies: Allergies: Allergies Coded Allergies Type Severity Reaction Last Updated Verified No Known Drug Allergies 11/05/18 No (JUSTIN BOSWELL DO) Physical Exam: PE: Constitutional: Well developed, well nourished, no acute distress, non-toxic appearance. [] HENT: Normocephalic, atraumatic, whitish drainage from the right external ear canal, oropharynx moist, no oral exudates, nose normal. There is tenderness TO PALPATION AT THE right mastoid area Eyes: PERRLA, EOMI, conjunctiva normal, no discharge. [] Neck: Normal range of motion, no tenderness, supple, no stridor. [] Cardiovascular:Heart rate regular rhythm, no murmur [] Lungs & Thorax: Bilateral breath sounds clear to auscultation [] Abdomen: Bowel sounds normal, soft, no tenderness, no masses, no pulsatile masses. [] Skin: Warm, dry, no erythema, no rash. [] Back: No tenderness, no CVA tenderness. [] Extremities: No tenderness, no cyanosis, no clubbing, ROM intact, no edema. [] Neurologic: Alert and oriented X 3, normal motor function, normal sensory f unction, no focal deficits noted. [] Psychologic: Affect normal, judgement normal, mood normal. [] (JSUTIN BOSWELL DO) Current Patient Data: Labs: Current Medications Medications (Trade) Dose Ordered Sig/Mirna Route PRN Reason Start Time Stop Time Status Last Admin Dose Admin Clonidine HCl (Catapres) 0.2 mg 1X ONCE PO 01/07/20 17:45 01/07/20 17:46 DC 01/07/20 18:09 0.2 MG Vital Signs: Vital Signs Date Time Temp Pulse Resp B/P (MAP) Pulse Ox O2 Delivery O2 Flow Rate FiO2 01/07/20 18:09 92 186/98 01/07/20 17:05 97.9 17 98 Room Air 97.9 (JUSTIN BOSWELL DO) EKG: EKG: [] (JUSTIN BOSWELL DO) EKG: EKG interpretation: 18: 12 on 01/07/2020 HR: 86 Sinus rhythm Regular intervals Left axis deviation Nonspecific ST changes (RADHA TREADWELL DO) Radiology/Procedures: Radiology/Procedures: [] (JUSTIN BOSWELL DO) Impression: CT HEAD Impression: 1. No acute intracranial process. 2. Opacification of the right middle ear cavity and mastoid air cells, which could represent otomastoiditis. (RADHA TREADWELL DO) Course & Med Decision Making: Course & Med Decision Making Pertinent Labs and Imaging studies reviewed. (See chart for details) Patient is an 79-year-old female who was evaluated in the ER due to chronic right ear pain, right ear infection, headache, high blood pressure. Patient CT scan and lab work are pending at this time, patient care was checked out to Dr. Domínguez at shift change. (JUSTIN BOSWELL DO) Course & Med Decision Making Patient CARE turned over to me from Dr. Boswell at shift change. Awaiting CT head results. Patient was given Catapres for hypertension. CT head shows mastoiditis. Patient given IV Rocephin in the ER. Blood pressure is down to 184/84. Patient states that she takes blood pressure medication at home for the evening. Patient is comfortable to go home and take her medications. Patient will be treated with oral antibiotics. Discussed results and plan of care with patient. Patient is instructed to follow up with PCP in one to 2 days. Appropriate discharge instructions given to patient to return to the ED or to seek immediate medical evaluation. Patient is instructed to return to the ED if symptoms worsen or if any concerns. (RADHA TREADWELL DO) Dragon Disclaimer: Dragon Disclaimer: This electronic medical record was generated, in whole or in part, using a voice recognition dictation system. (JUSTIN BOSWELL DO) Departure Departure Impression: Primary Impression: Hypertension Additional Impressions: Otitis externa of right ear Mastoiditis Disposition: HOME, SELF-CARE Condition: IMPROVED Referrals: OTIS CHRISTENSEN MD (PCP) Patient Instructions: Hypertension, Mastoiditis Additional Instructions: Please return to the ED if symptoms worsen or if any concerns. Please follow-up with your PCP in 1 to 2 days. Scripts Amoxicillin/Potassium Clav (AUGMENTIN 875-125 TABLET) 1 Each Tablet 1 TAB PO BID for 14 Days, #28 TAB 0 Refills Prov: RADHA TREADWELL DO 01/07/20 Justicifation of Admission Dx: Justifications for Admission: Justification of Admission Dx: N/A (JUSTIN BOSWELL DO) Justification of Admission Dx: No (RADHA TREADWELL DO) JUSTIN BOSWELL DO Jan 07, 2020 18:19 RADHA TREADWELL DO Jan 07, 2020 19:53
[2020-01-07 18:39] LABS: BASO # 0.1 x10^3/uL (0.0-0.2); BASO % 1 % (0-3); EOS # 0.2 x10^3/uL (0.0-0.7); EOS % 2 % (0-3); HEMATOCRIT 46.1 % (36.0-47.0); HEMOGLOBIN 15.5 g/dL (12.0-15.5); LYMPH # 2.7 x10^3/uL (1.0-4.8); LYMPH % 26 % (24-48); MEAN CORPUSCULAR HEMOGLOBIN 30 pg (25-35); MEAN CORPUSCULAR HGB CONC 34 g/dL (31-37); MEAN CORPUSCULAR VOLUME 90 fL (79-100); MONO # 0.7 x10^3/uL (0.0-1.1); MONO % 7 % (0-9); NEUT # 6.7 x10^3/uL (1.8-7.7); NEUT % 65 % (31-73); PLATELET COUNT 161 x10^3/uL (140-400); RED BLOOD COUNT 5.11 x10^6/uL (3.50-5.40); RED CELL DISTRIBUTION WIDTH 14.3 % (11.5-14.5); WHITE BLOOD COUNT 10.4 x10^3/uL (4.0-11.0)
[2020-01-07 18:52] LABS: CALCIUM 9.2 mg/dL (8.5-10.1); CREATININE 0.8 mg/dL (0.6-1.0); POTASSIUM 3.5 mmol/L (3.5-5.1)
[2020-01-07 18:58] LABS: ALBUMIN 3.7 g/dL (3.4-5.0); TOTAL BILIRUBIN 0.4 mg/dL (0.2-1.0); TOTAL PROTEIN 7.5 g/dL (6.4-8.2)
[2020-01-07] MEDS ORDERED: cefTRIAXone IV Push 1 GM VIAL. IVP ONE (19:30)
[2020-01-07] MEDS ORDERED: AMOX1TAB61 PO (20:08)
[2020-01-07 20:13] VITALS: BP 153/76
--- NOTE | 2020-01-09 04:30 | EKG ---
[facility] [address] [place] [address] Test Date: 2020-01-07 Test Time: 18:12:23 Pat Name: MICKIE MUSE Department: Room: Gender: F Cash Management Specialist: : 1940 Requested By: JUSTIN BOSWELL Order Number: [id number] Reading MD: Measurements Intervals [place] Rate: 86 P: 20 [place]: 242 QRS: -18 QRSD: 78 T: 31 QT: 362 QTc: 436 Interpretive Statements SINUS RHYTHM PROLONGED [place] INTERVAL LEFTWARD AXIS R-S TRANSITION ZONE IN V LEADS DISPLACED TO THE LEFT ABNORMAL ECG RI6.02 No previous ECG available for comparison
== END 2020-01-07 20:17 | disposition home or self-care (01) ==
LOC: ER 16:49
DX: H60.8X1 Other otitis externa, right ear (principal); H70.891 Other mastoiditis and related conditions, right ear; I10 Essential (primary) hypertension; F41.9 Anxiety disorder, unspecified; E78.00 Pure hypercholesterolemia, unspecified; Z86.73 Personal history of transient ischemic attack (TIA), and cerebral infarction without residual deficits; Z90.710 Acquired absence of both cervix and uterus; Z90.49 Acquired absence of other specified parts of digestive tract; Z98.890 Other specified postprocedural states; Z87.891 Personal history of nicotine dependence
CPT/HCPCS: 36415; 70450; 71045; 80053; 83735; 83880; 84484; 85025; 96374; 99285; J0696

== ENCOUNTER → 2020-02-21 | Outpatient (CLI) | payer BC, OTHER ==
[~2020-02-21] MED LIST changes: +AMOX1TAB61 PO
--- NOTE | 2020-02-21 11:40 | RAD ---
EXAM: 1. Unilateral 3-D digital diagnostic mammography, right. 2. Right breast ultrasound. HISTORY: Six-month follow-up right breast architectural distortion. TECHNIQUE: Digital images were obtained on the right in CC and MLO projections with tomosynthesis. Sonography of the right lateral breast was also performed. COMPARISON: 07/21/2019, 05/05/2019. COMPOSITION: B. There are scattered areas of fibroglandular density. FINDINGS: The previously suggested focus of architectural distortion laterally on the right is no longer well seen. Circumscribed or partially obscured nodules are stable. Scattered and coarse calcifications appear benign. There is no suspicious mammographic finding. There is no sonographic correlate for architectural distortion laterally on the right. Multiple small cysts appear benign. Some are mildly complicated, containing internal septations or echoes. No internal perfusion is identified. The largest measures 9 x 8 mm at the 8:00 position 9 cm from the nipple, and is consistent with a calculated cyst or a small fibroadenoma. There is no suspicious sonographic finding. BI-RADS CATEGORY 2: Benign. RECOMMENDATION: 1. Resume bilateral screening mammography in 6 months. Electronically signed by: Claire Almodovar MD (02/21/2020 11:37 AM) [id number]
== END | disposition home or self-care (01) ==
LOC: MAMMO 10:01
PROVIDERS: ATTEND Family Medicine
DX: R92.1 Mammographic calcification found on diagnostic imaging of breast (principal); N60.01 Solitary cyst of right breast; N63.13 Unspecified lump in the right breast, lower outer quadrant
CPT/HCPCS: 76641; 77065; G0279; 77061

== ENCOUNTER 2020-03-01 00:15 | Emergency (ER) | payer BC, OTHER ==
[~2020-03-01] VITALS: Ht 172.7 cm; Wt 90.0 kg
--- NOTE | 2020-03-01 00:44 | PHYS DOC ---
Past Medical History Past Medical History: Anxiety, High Cholesterol, Hypertension, TIA, Other Additional Past Medical Histor: Macular degeneration, vertigo Past Surgical History: Cholecystectomy, Hysterectomy, Other Additional Past Surgical Histo: ankle, breast biopsy, sinus Smoking Status: Light Tobacco Smoker Alcohol Use: None Drug Use: None General Adult EDM: Chief Complaint: INSECT BITE HPI: HPI: Patient is an 79-year-old female with a history of anxiety who presents with a rash in her left antecubital area. Started tonight. She said it does not itch does not hurt she does not know what she got into she does not know what she may have been bit by but she thinks it is an insect bite. She has been trying Neosporin on it without relief [] Review of Systems: Review of Systems: Constitutional: Denies fever or chills. [] Eyes: Denies change in visual acuity. [] HENT: Denies nasal congestion or sore throat. [] Respiratory: Denies cough or shortness of breath. [] Cardiovascular: Denies chest pain or edema. [] GI: Denies abdominal pain, nausea, vomiting, bloody stools or diarrhea. [] : Denies dysuria. [] Musculoskeletal: Denies back pain or joint pain. [] Integument: Per HPI [] Neurologic: Denies headache, focal weakness or sensory changes. [] Endocrine: Denies polyuria or polydipsia. [] Lymphatic: Denies swollen glands. [] Psychiatric: Denies depression or anxiety. [] Heart Score: Risk Factors: Risk Factors: DM, Current or recent (<one month) smoker, HTN, HLP, family history of CAD, obesity. Risk Scores: Score 0 - 3: 2.5% MACE over next 6 weeks - Discharge Home Score 4 - 6: 20.3% MACE over next 6 weeks - Admit for Clinical Observation Score 7 - 10: 72.7% MACE over next 6 weeks - Early Invasive Strategies Allergies: Allergies: Allergies Coded Allergies Type Severity Reaction Last Updated Verified No Known Drug Allergies 11/05/18 No Physical Exam: PE: Constitutional: Well developed, well nourished, no acute distress, non-toxic appearance. [] HENT: Normocephalic, atraumatic, bilateral external ears normal, oropharynx moist, no oral exudates, nose normal. [] Eyes: PERRLA, EOMI, conjunctiva normal, no discharge. [] Neck: Normal range of motion, no tenderness, supple, no stridor. [] Cardiovascular:Heart rate regular rhythm, no murmur [] Lungs & Thorax: Bilateral breath sounds clear to auscultation [] Abdomen: Bowel sounds normal, soft, no tenderness, no masses, no pulsatile masses. [] Skin: Tiny raised erythematous rash no induration obviously no abscess [] Back: No tenderness, no CVA tenderness. [] Extremities: No tenderness, no cyanosis, no clubbing, ROM intact, no edema. [] Neurologic: Alert and oriented X 3, normal motor function, normal sensory function, no focal deficits noted. [] Psychologic: Affect normal, judgement normal, mood normal. [] EKG: EKG: [] Radiology/Procedures: Radiology/Procedures: [] Course & Med Decision Making: Course & Med Decision Making Pertinent Labs and Imaging studies reviewed. (See chart for details) [] Dragon Disclaimer: Dragon Disclaimer: This electronic medical record was generated, in whole or in part, using a voice recognition dictation system. Departure Departure Impression: Primary Impression: Contact dermatitis Qualified Codes: L25.9 - Unspecified contact dermatitis, unspecified cause Disposition: 01 HOME, SELF-CARE Condition: STABLE Referrals: OTIS CHRISTENSEN MD (PCP) Patient Instructions: Contact Dermatitis Additional Instructions: Use hydrocortisone cream that is [id number] as we discussed. You can use this twice daily. Return to the emergency department with any new or concerning symptoms Justicifation of Admission Dx: Justifications for Admission: Justification of Admission Dx: NOEL Valencia DO Mar 01, 2020 00:44
[2020-03-01 00:50] VITALS: BP 195/79
== END 2020-03-01 00:47 | disposition home or self-care (01) ==
LOC: ER 00:15
DX: L25.9 Unspecified contact dermatitis, unspecified cause (principal); R21 Rash and other nonspecific skin eruption; F41.9 Anxiety disorder, unspecified; E78.00 Pure hypercholesterolemia, unspecified; I10 Essential (primary) hypertension; Z86.73 Personal history of transient ischemic attack (TIA), and cerebral infarction without residual deficits; Z90.710 Acquired absence of both cervix and uterus; Z90.49 Acquired absence of other specified parts of digestive tract; Z98.890 Other specified postprocedural states; Z87.891 Personal history of nicotine dependence
CPT/HCPCS: 99282

== ENCOUNTER 2020-03-15 18:55 | Inpatient (IN) | payer BC, OTHER ==
[~2020-03-15] VITALS: Ht 170.2 cm; Wt 101.8 kg
[2020-03-15] MEDS ORDERED: IV NORMAL SALINE 1000ML BAG 1,000 ML IV ONE (19:30)
[2020-03-15] MEDS ORDERED: fentaNYL PF VIAL 100 MCG/2 ML VIAL IVP ONE (19:30)
[2020-03-15] MEDS ORDERED: ONDANSETRON PF 4 MG/2 ML VIAL. IVP ONE (19:30)
[2020-03-15] MEDS ORDERED: FAMOTIDINE 20 MG/2 ML VIAL IVP ONE (19:30)
[2020-03-15 19:43] LABS: BILIRUBIN,URINE NEGATIVE (NEG); CLARITY,URINE CLEAR; COLOR,URINE YELLOW; NITRITE,URINE NEGATIVE (NEG); PROTEIN,URINE NEGATIVE (NEG-TRACE); UROBILINOGEN,URINE 0.2 mg/dL (0.2 mg/dL)
[2020-03-15 19:54] LABS: AMORPHOUS SEDIMENT,UR PRESENT /HPF; BACTERIA,URINE FEW /HPF (0-FEW); RBC,URINE OCC /HPF (0-2); SQUAMOUS EPITHELIAL CELL,UR MOD /LPF; WBC,URINE OCC /HPF (0-4)
--- NOTE | 2020-03-15 20:11 | PHYS DOC ---
Past Medical History Past Medical History: Anxiety, High Cholesterol, Hypertension, TIA, Other Additional Past Medical Histor: Macular degeneration, vertigo Past Surgical History: Cholecystectomy, Hysterectomy, Other Additional Past Surgical Histo: ankle, breast biopsy, sinus, cataract Smoking Status: Current Every Day Smoker Alcohol Use: None Drug Use: None General Adult EDM: Chief Complaint: ABDOMINAL PAIN HPI: HPI: 79-year-old female presents to the emergency department for abdominal pain that began 3 hours ago. The pain was not associated with any food or beverage. The patient has not vomited but does feel nauseated. The patient states that it is a aching pain with occasional sharp pains that migrates around the abdomen. The pain was originally of the left upper quadrant, now it is epigastric in nature. The pain does not radiate to her pelvis. The patient's last bowel movement was this afternoon. The patient denies any changes to bowel movements or urination. The patient states that she had a small bowel obstruction in May 2019, she states that this feels similar to the pain that she felt with that small bowel obstruction. The patient has not taken any medications for the pain and nothing has been able to make it better or worse. She does have anxiety, for which she took a benzodiazepine today. Denies known sick contacts. Denies trauma. Denies known exposure to COVID-19. Review of Systems: Review of Systems: Constitutional: Denies fever or chills Eyes: Denies redness or eye pain HENT: Denies nasal congestion or sore throat Respiratory: Denies cough or shortness of breath Cardiovascular: Denies chest pain or palpitations GI: Reports abdominal pain and nausea : Denies dysuria or hematuria Musculoskeletal: Denies back pain or joint pain Integument: Denies rash or skin lesions Neurologic: Denies headache, focal weakness or sensory changes Complete systems were reviewed and found to be within normal limits, except as documented in this note. Current Medications: Current Medications Medications (Trade) Dose Ordered Sig/Mirna Start Time Stop Time Status Last Admin Dose Admin Famotidine (Pepcid Vial) 20 mg 1X ONCE 03/15/20 19:30 03/15/20 19:31 DC 03/15/20 20:03 20 MG Fentanyl Citrate (Fentanyl 2ml Vial) 25 mcg 1X ONCE 03/15/20 19:30 03/15/20 19:31 DC 03/15/20 20:03 25 MCG Ondansetron HCl (Zofran) 4 mg 1X ONCE 03/15/20 19:30 03/15/20 19:31 DC 03/15/20 20:03 4 MG Sodium Chloride 1,000 ml @ 1,000 mls/hr 1X ONCE 03/15/20 19:30 03/15/20 20:29 Allergies: Allergies: Allergies Coded Allergies Type Severity Reaction Last Updated Verified No Known Drug Allergies 11/05/18 No Physical Exam: PE: Constitutional: Well developed, well nourished, no acute distress, non-toxic appearance HENT: Normocephalic, atraumatic Eyes: Conjunctiva normal, no discharge Neck: Normal range of motion, supple Lungs & Thorax: No respiratory distress, equal chest rise and fall bilaterally Abdomen: Soft, reports tenderness and constant pain throughout abdomen, mild distention, no guarding Skin: Warm, dry, no erythema, no rash Back: No tenderness, no CVA tenderness Extremities: No tenderness, ROM intact, no edema Neurologic: Alert and oriented X 3, no focal deficits noted Psychologic: Affect normal, judgment normal Current Patient Data: Labs: Laboratory Tests Test 03/15/20 19:20 Urine Collection Type Unknown Urine Color Yellow Urine Clarity Clear Urine pH 6.0 (<5.0-8.0) Urine Specific [place] 1.015 (1.000-1.030) Urine Protein Negative mg/dL (NEG-TRACE) Urine Glucose (UA) Negative mg/dL (NEG) Urine Ketones (Stick) Negative mg/dL (NEG) Urine Blood Negative (NEG) Urine Nitrite Negative (NEG) Urine Bilirubin Negative (NEG) Urine Urobilinogen Dipstick 0.2 mg/dL (0.2 mg/dL) Urine Leukocyte Esterase Negative (NEG) Urine RBC Occ /HPF (0-2) Urine WBC Occ /HPF (0-4) Urine Squamous Epithelial Cells Mod /LPF Urine Amorphous Sediment Present /HPF Urine Bacteria Few /HPF (0-FEW) Urine Mucus Slight /LPF Vital Signs: Vital Signs Date Time Temp Pulse Resp B/P (MAP) Pulse Ox O2 Delivery O2 Flow Rate FiO2 03/15/20 19:22 98.3 92 16 194/88 (123) 98 Room Air 98.3 EKG: EKG: @ 1941 Regular rate and rhythm, prolonged NM interval 232, QT/QTc = 364/449 Radiology/Procedures: Radiology/Procedures: PROCEDURE: CT ABD PELV W/ IV CONTRST ONLY Exam: CT of abdomen and pelvis with contrast INDICATION: Abdominal pain TECHNIQUE: Sequential axial images through the abdomen and pelvis obtained following the administration of 75 mL of Omni 300 IV contrast. Sagittal and coronal reformatted images were reconstructed from the axial data and reviewed. Comparisons: 01/12/2019 FINDINGS: Heart size is normal. No pericardial effusion. Visualized lung bases are clear. No pleural effusion. Mild diffuse hepatic steatosis. Spleen, pancreas and adrenals are unremarkable. Gallbladder surgically absent. Kidneys demonstrate symmetric enhancement. No perinephric inflammation or hydronephrosis. No renal or ureteral calculi are identified. Bladder is distended and appears thin-walled. Uterus is absent. No abnormal adnexal mass. Postsurgical changes of partial colectomy with a ileocolic anastomosis. There are several mildly dilated loops of small bowel noted prominently in the pelvis. There is a short segment transition to normal caliber bowel seen in the left lower quadrant series 4 image 16 and series 2 image 68. No free intra-abdominal air or fluid. Abdominal aorta has a normal course and caliber. Abdominal vasculature is patent. No enlarged abdominal lymph nodes are identified. No suspicious osseous lesions or acute fractures. IMPRESSION: 1. Findings likely related to partial or early small bowel obstruction with gradual transition point in the left lower quadrant. No evidence for perforation. 2. Mild diffuse hepatic steatosis. Exposure: One or more of the following in the visualized dose reduction techniques were utilized for this examination: 1. Automated exposure control 2. Adjustment of the MA and/or KV according to patient size 3. Use of iterative of reconstructive technique Electronically signed by: Elías Dempsey MD (03/15/2020 9:50 PM) [id number] Course & Med Decision Making: Course & Med Decision Making An 79-year-old female presents for abdominal pain that was sudden onset and is similar to pain she has felt before when she has had a small bowel obstruction. Symptomatic treatment provided. IVF hydration given. She does have a history of colon surgery making it very likely that it adhesion could be causing small bowel obstruction. Labs obtained and posted to chart. CT imaging shows partial vs early small bowel obstruction. At this time we believe it is best that she is admitted for follow inpatient observation and treatment. Patient requiring admission for further evaluation and treatment. Discussed with Dr. Salgado who is in agreement with admission. Consultation placed to general surgery. Discussed findings and plan with patient, who acknowledges understanding and agreement. [place] Disclaimer: [place] Disclaimer: This electronic medical record was generated, in whole or in part, using a voice recognition dictation system. Departure Departure Impression: Primary Impression: SBO (small bowel obstruction) Disposition: ADMITTED INPATIENT Admitting Physician: TRACI Kelley) Condition: STABLE Referrals: OTIS CHRISTENSEN MD (PCP) Justicifation of Admission Dx: Justifications for Admission: Justification of Admission Dx: Yes Comments: HARESH IVORY DO Mar 15, 2020 20:11
[2020-03-15 20:16] LABS: BASO # 0.1 x10^3/uL (0.0-0.2); BASO % 1 % (0-3); EOS # 0.2 x10^3/uL (0.0-0.7); EOS % 2 % (0-3); HEMOGLOBIN 16.2 g/dL (12.0-15.5); LYMPH # 1.9 x10^3/uL (1.0-4.8); LYMPH % 21 % (24-48); MEAN CORPUSCULAR HEMOGLOBIN 30 pg (25-35); MEAN CORPUSCULAR HGB CONC 34 g/dL (31-37); MEAN CORPUSCULAR VOLUME 90 fL (79-100); MONO # 0.6 x10^3/uL (0.0-1.1); MONO % 7 % (0-9); NEUT # 6.2 x10^3/uL (1.8-7.7); NEUT % 69 % (31-73); PLATELET COUNT 134 x10^3/uL (140-400); RED BLOOD COUNT 5.34 x10^6/uL (3.50-5.40); RED CELL DISTRIBUTION WIDTH 14.1 % (11.5-14.5)
[2020-03-15 20:25] LABS: CALCIUM 9.9 mg/dL (8.5-10.1); CREATININE 0.7 mg/dL (0.6-1.0); GFR 80.5; POTASSIUM 3.9 mmol/L (3.5-5.1)
[2020-03-15 20:27] LABS: PROTHROMBIN TIME PATIENT 12.9 SEC (11.7-14.0)
[2020-03-15] MEDS ORDERED: IOHEXOL 300 MG/ML 100ML VIAL. IV ONE (20:30)
[2020-03-15] MEDS ORDERED: CONTRAST GIVEN. MC PRN (20:30)
[2020-03-15 20:31] LABS: ALBUMIN 4.3 g/dL (3.4-5.0); ALBUMIN/GLOBULIN RATIO 1.2 (1.0-1.7); TOTAL BILIRUBIN 0.4 mg/dL (0.2-1.0); TOTAL PROTEIN 7.9 g/dL (6.4-8.2)
--- NOTE | 2020-03-15 21:53 | RAD ---
Exam: CT of abdomen and pelvis with contrast INDICATION: Abdominal pain TECHNIQUE: Sequential axial images through the abdomen and pelvis obtained following the administration of 75 mL of Omni 300 IV contrast. Sagittal and coronal reformatted images were reconstructed from the axial data and reviewed. Comparisons: 01/12/2019 FINDINGS: Heart size is normal. No pericardial effusion. Visualized lung bases are clear. No pleural effusion. Mild diffuse hepatic steatosis. Spleen, pancreas and adrenals are unremarkable. Gallbladder surgically absent. Kidneys demonstrate symmetric enhancement. No perinephric inflammation or hydronephrosis. No renal or ureteral calculi are identified. Bladder is distended and appears thin-walled. Uterus is absent. No abnormal adnexal mass. Postsurgical changes of partial colectomy with a ileocolic anastomosis. There are several mildly dilated loops of small bowel noted prominently in the pelvis. There is a short segment transition to normal caliber bowel seen in the left lower quadrant series 4 image 16 and series 2 image 68. No free intra-abdominal air or fluid. Abdominal aorta has a normal course and caliber. Abdominal vasculature is patent. No enlarged abdominal lymph nodes are identified. No suspicious osseous lesions or acute fractures. IMPRESSION: 1. Findings likely related to partial or early small bowel obstruction with gradual transition point in the left lower quadrant. No evidence for perforation. 2. Mild diffuse hepatic steatosis. Exposure: One or more of the following in the visualized dose reduction techniques were utilized for this examination: 1. Automated exposure control 2. Adjustment of the MA and/or KV according to patient size 3. Use of iterative of reconstructive technique Electronically signed by: Elías Dempsey MD (03/15/2020 9:50 PM) [id number]
[2020-03-15] MEDS ORDERED: ONDANSETRON PF 4 MG/2 ML VIAL. IV PRN (23:00)
[2020-03-15] MEDS: IV NORMAL SALINE 1000ML BAG 1,000 ML IV SCH (23:30)
[2020-03-16] VITALS (7 sets, daily range): BP systolic 129–161; BP diastolic 52–83
[2020-03-16] MEDS: fentaNYL PF VIAL 100 MCG/2 ML VIAL IV PRN ×2 (00:58→11:18)
[2020-03-16] MEDS ORDERED: CIPR7.5D RIGHT EAR (02:14)
[2020-03-16] MEDS ORDERED: LORA0.5T96 PO (02:14)
[2020-03-16] MEDS ORDERED: FLUT16SP NS (02:14)
[2020-03-16] MEDS ORDERED: BENA40TA3 PO (02:14)
--- NOTE | 2020-03-16 02:20 | NUR ---
ADMIT NOTE The patient, MICKIE MUSE, 79 y/o, F admitted by CORRINE HARRINGTON MD, was given written information regarding hospital policies, unit procedures and contact persons. Patient A&O, afebrile, with vitals WNL upon admit to floor. Patient orientated to unit, allergies verified, home medications reviewed, and plan of care discussed; valuables were checked and left in room with patient. Patient remains in bed, bed in lowest/locked position, call light within reach and no other needs voiced at this time.
--- NOTE | 2020-03-16 06:25 | EKG ---
[facility] [address] [place] [address] Test Date: 2020-03-15 Test Time: 19:41:51 Pat Name: MICKIE MUSE Department: Room: Gender: F Chemist: : 1940 Requested By: HARESH CARTER Order Number: [id number] Reading MD: Measurements Intervals [place] Rate: 90 P: 6 [place]: 232 QRS: -17 QRSD: 68 T: 39 QT: 364 QTc: 449 Interpretive Statements SINUS RHYTHM ATRIAL PREMATURE COMPLEX(ES) PROLONGED [place] INTERVAL LEFTWARD AXIS QRS(T) CONTOUR ABNORMALITY CONSISTENT WITH ANTEROSEPTAL INFARCT AGE UNDETERMINED ABNORMAL ECG RI6.02 No previous ECG available for comparison
--- NOTE | 2020-03-16 09:27 | PDOC2 ---
WOODYELEAZAR Maria G INVESTIGATIVE RESEARCH SPECIALIST 03/16/20 0927: CONSULT Date of Consult Date of Consult DATE: 03/16/20 TIME: 09:19 Reason for Consult Reason for Consult: SBO Referring Physician Referring Physician: ER Identification/Chief Complaint Chief Complaint abdominal pain Source Source: Chart review, Patient History of Present Illness Reason for Visit: Reports acute onset of abdominal pain, nausea, no emesis Hx of colon resection by Dr Ayers in 2017 for colon cancer. Was here 2019 for enteritis/SBO Does report feeling better had a loose stool this morning and yesterday, reports significant flatus Past Medical History Cardiovascular: HTN CENTRAL NERVOUS SYSTEM: TIA GI: No pertinent hx Psych: Anxiety, Depression Musculoskeletal: low back pain Past Surgical History Past Surgical History: Cholecystectomy, Hysterectomy, Colon Resection, Other Family History Family History: No Significant Social History ALCOHOL: none Drugs: None Current Medications Current Medications Current Medications Fentanyl Citrate (Fentanyl 2ml Vial) 25 mcg 1X ONCE IVP Last administered on 03/15/20at 20:03; Start 03/15/20 at 19:30; Stop 03/15/20 at 19:31; Status DC Ondansetron HCl (Zofran) 4 mg 1X ONCE IVP Last administered on 03/15/20at 20:03; Start 03/15/20 at 19:30; Stop 03/15/20 at 19:31; Status DC Famotidine (Pepcid Vial) 20 mg 1X ONCE IVP Last administered on 03/15/20at 20:03; Start 03/15/20 at 19:30; Stop 03/15/20 at 19:31; Status DC Sodium Chloride 1,000 ml @ 1,000 mls/hr 1X ONCE IV Last administered on 03/15/20at 20:06; Start 03/15/20 at 19:30; Stop 03/15/20 at 20:29; Status DC Iohexol (Omnipaque 300 Mg/ml) 75 ml 1X ONCE IV Last administered on 03/15/20at 20:30; Start 03/15/20 at 20:30; Stop 03/15/20 at 20:31; Status DC Info (CONTRAST GIVEN -- Rx MONITORING) 1 each PRN DAILY PRN MC SEE COMMENTS; Start 03/15/20 at 20:30; Stop 03/17/20 at 20:29 Ondansetron HCl (Zofran) 4 mg PRN Q8HRS PRN IV NAUSEA/VOMITING 1ST CHOICE; Start 03/15/20 at 23:00; Stop 03/16/20 at 22:59 Fentanyl Citrate (Fentanyl 2ml Vial) 50 mcg PRN Q2HRS PRN IV SEVERE PAIN 7-10 Last administered on 03/16/20at 00:58; Start 03/15/20 at 23:00 Sodium Chloride 1,000 ml @ 100 mls/hr Q10H IV Last administered on 03/15/20at 23:30; Start 03/15/20 at 23:30; Stop 03/16/20 at 23:29 Active Scripts Active Augmentin 875-125 Tablet (Amoxicillin/Potassium Clav) 1 Each Tablet 1 Tab PO BID 14 Days Flagyl (Metronidazole) 500 Mg Tablet 1 Tab PO BID Zofran Odt (Ondansetron) 4 Mg Tab.rapdis 1 Tab SL Q8HRS Pyridium (Phenazopyridine Hcl) 200 Mg Tablet 200 Mg PO TID Reported Ciprodex Otic Suspension (Ciprofloxacin Hcl/Dexameth) 7.5 Ml Drops.susp 4 Drop RIGHT EAR BID Fluticasone Propionate Nasal [place] (Fluticasone Propionate) 16 Gm [place].susp 2 [place] NS DAILY Benazepril Hcl 40 Mg Tablet 40 Mg PO DAILY Ativan (Lorazepam) 0.5 Mg Tablet 0.5 Mg PO Q8HRS Triamterene-Hctz 37.5-25 Mg Cp (Triamterene/Hydrochlorothiazid) 1 Each Capsule 1 Cap PO DAILY Lorazepam 0.5 Mg Tablet 0.5 Mg PO TID Allergies Allergies: Coded Allergies: No Known Drug Allergies (Unverified , 11/05/18) ROS General: No: Chills, Other (fevers) PSYCHOLOGICAL ROS: No: Anxiety, Depression Eyes: No Blurry vision, No Double vision HEENT: No: Heacaches, Sore Throat Hematological and Lymphatic: No: Bleeding Problems, Blood Clots Respiratory: No: Cough, Shortness of breath Cardiovascular: No Chest Pain, No Palpitations Gastrointestinal: Yes Other (see hpi) Genitourinary: No Dysuria, No Hematuria Musculoskeletal: No Joint Pain, No Muscle Pain Neurological: No Impaired Coord/balance, No Numbness/Tingling Skin: No Pruritus, No Rash Physical Exam General: Alert, Oriented X3, Cooperative HEENT: Atraumatic, PERRLA Lungs: Clear to auscultation, Normal air movement Heart: Regular rate, Normal S1, Normal S2 Abdomen: Soft, Other (mildly distended, nontender, midline scar ) Extremities: No clubbing, No cyanosis Skin: No rashes, No breakdown Neuro: Normal gait, Normal speech Psych/Mental Status: Mental status NL, Mood NL MUSCULOSKELETAL: No deformity, No swelling Vitals VITALS Vital Signs Date Time Temp Pulse Resp B/P (MAP) Pulse Ox O2 Delivery O2 Flow Rate FiO2 03/16/20 07:00 98.4 84 18 138/83 (101) 93 Room Air 98.4 Labs Labs Laboratory Tests Test 03/15/20 19:20 03/15/20 20:00 Urine Collection Type Unknown Urine Color Yellow Urine Clarity Clear Urine pH 6.0 (<5.0-8.0) Urine Specific [place] 1.015 (1.000-1.030) Urine Protein Negative mg/dL (NEG-TRACE) Urine Glucose (UA) Negative mg/dL (NEG) Urine Ketones (Stick) Negative mg/dL (NEG) Urine Blood Negative (NEG) Urine Nitrite Negative (NEG) Urine Bilirubin Negative (NEG) Urine Urobilinogen Dipstick 0.2 mg/dL (0.2 mg/dL) Urine Leukocyte Esterase Negative (NEG) Urine RBC Occ /HPF (0-2) Urine WBC Occ /HPF (0-4) Urine Squamous Epithelial Cells Mod /LPF Urine Amorphous Sediment Present /HPF Urine Bacteria Few /HPF (0-FEW) Urine Mucus Slight /LPF White Blood Count 9.0 x10^3/uL (4.0-11.0) Red Blood Count 5.34 x10^6/uL (3.50-5.40) Hemoglobin 16.2 g/dL (12.0-15.5) Hematocrit 48.0 % (36.0-47.0) Mean Corpuscular Volume 90 fL (79-100) Mean Corpuscular Hemoglobin 30 pg (25-35) Mean Corpuscular Hemoglobin Concent 34 g/dL (31-37) Red Cell Distribution Width 14.1 % (11.5-14.5) Platelet Count 134 x10^3/uL (140-400) Neutrophils (%) (Auto) 69 % (31-73) Lymphocytes (%) (Auto) 21 % (24-48) Monocytes (%) (Auto) 7 % (0-9) Eosinophils (%) (Auto) 2 % (0-3) Basophils (%) (Auto) 1 % (0-3) Neutrophils # (Auto) 6.2 x10^3/uL (1.8-7.7) Lymphocytes # (Auto) 1.9 x10^3/uL (1.0-4.8) Monocytes # (Auto) 0.6 x10^3/uL (0.0-1.1) Eosinophils # (Auto) 0.2 x10^3/uL (0.0-0.7) Basophils # (Auto) 0.1 x10^3/uL (0.0-0.2) Prothrombin Time 12.9 SEC (11.7-14.0) Prothromb Time International Ratio 1.0 (0.8-1.1) Activated Partial Thromboplast Time 37 SEC (24-38) Sodium Level 144 mmol/L (136-145) Potassium Level 3.9 mmol/L (3.5-5.1) Chloride Level 104 mmol/L (98-107) Carbon Dioxide Level 29 mmol/L (21-32) Anion Gap 11 (6-14) Blood Urea Nitrogen 14 mg/dL (7-20) Creatinine 0.7 mg/dL (0.6-1.0) Estimated GFR (Cockcroft-Gault) 80.5 BUN/Creatinine Ratio 20 (6-20) Glucose Level 108 mg/dL (70-99) Lactic Acid Level 1.5 mmol/L (0.4-2.0) Calcium Level 9.9 mg/dL (8.5-10.1) Magnesium Level 2.0 mg/dL (1.8-2.4) Total Bilirubin 0.4 mg/dL (0.2-1.0) Aspartate Amino Transf (AST/SGOT) 56 U/L (15-37) Alanine Aminotransferase (ALT/SGPT) 98 U/L (14-59) Alkaline Phosphatase 103 U/L (46-116) Creatine Kinase 145 U/L (26-192) Creatine Kinase MB (Mass) 2.8 ng/mL (0.0-3.6) Creatine Kinase MB Relative Index 1.9 % (0-4) Troponin I Quantitative < 0.017 ng/mL (0.000-0.055) Total Protein 7.9 g/dL (6.4-8.2) Albumin 4.3 g/dL (3.4-5.0) Albumin/Globulin Ratio 1.2 (1.0-1.7) Lipase 110 U/L (73-393) Laboratory Tests Test 03/15/20 19:20 03/15/20 20:00 Urine Collection Type Unknown Urine Color Yellow Urine Clarity Clear Urine pH 6.0 (<5.0-8.0) Urine Specific [place] 1.015 (1.000-1.030) Urine Protein Negative mg/dL (NEG-TRACE) Urine Glucose (UA) Negative mg/dL (NEG) Urine Ketones (Stick) Negative mg/dL (NEG) Urine Blood Negative (NEG) Urine Nitrite Negative (NEG) Urine Bilirubin Negative (NEG) Urine Urobilinogen Dipstick 0.2 mg/dL (0.2 mg/dL) Urine Leukocyte Esterase Negative (NEG) Urine RBC Occ /HPF (0-2) Urine WBC Occ /HPF (0-4) Urine Squamous Epithelial Cells Mod /LPF Urine Amorphous Sediment Present /HPF Urine Bacteria Few /HPF (0-FEW) Urine Mucus Slight /LPF White Blood Count 9.0 x10^3/uL (4.0-11.0) Red Blood Count 5.34 x10^6/uL (3.50-5.40) Hemoglobin 16.2 g/dL (12.0-15.5) Hematocrit 48.0 % (36.0-47.0) Mean Corpuscular Volume 90 fL (79-100) Mean Corpuscular Hemoglobin 30 pg (25-35) Mean Corpuscular Hemoglobin Concent 34 g/dL (31-37) Red Cell Distribution Width 14.1 % (11.5-14.5) Platelet Count 134 x10^3/uL (140-400) Neutrophils (%) (Auto) 69 % (31-73) Lymphocytes (%) (Auto) 21 % (24-48) Monocytes (%) (Auto) 7 % (0-9) Eosinophils (%) (Auto) 2 % (0-3) Basophils (%) (Auto) 1 % (0-3) Neutrophils # (Auto) 6.2 x10^3/uL (1.8-7.7) Lymphocytes # (Auto) 1.9 x10^3/uL (1.0-4.8) Monocytes # (Auto) 0.6 x10^3/uL (0.0-1.1) Eosinophils # (Auto) 0.2 x10^3/uL (0.0-0.7) Basophils # (Auto) 0.1 x10^3/uL (0.0-0.2) Prothrombin Time 12.9 SEC (11.7-14.0) Prothromb Time International Ratio 1.0 (0.8-1.1) Activated Partial Thromboplast Time 37 SEC (24-38) Sodium Level 144 mmol/L (136-145) Potassium Level 3.9 mmol/L (3.5-5.1) Chloride Level 104 mmol/L (98-107) Carbon Dioxide Level 29 mmol/L (21-32) Anion Gap 11 (6-14) Blood Urea Nitrogen 14 mg/dL (7-20) Creatinine 0.7 mg/dL (0.6-1.0) Estimated GFR (Cockcroft-Gault) 80.5 BUN/Creatinine Ratio 20 (6-20) Glucose Level 108 mg/dL (70-99) Lactic Acid Level 1.5 mmol/L (0.4-2.0) Calcium Level 9.9 mg/dL (8.5-10.1) Magnesium Level 2.0 mg/dL (1.8-2.4) Total Bilirubin 0.4 mg/dL (0.2-1.0) Aspartate Amino Transf (AST/SGOT) 56 U/L (15-37) Alanine Aminotransferase (ALT/SGPT) 98 U/L (14-59) Alkaline Phosphatase 103 U/L (46-116) Creatine Kinase 145 U/L (26-192) Creatine Kinase MB (Mass) 2.8 ng/mL (0.0-3.6) Creatine Kinase MB Relative Index 1.9 % (0-4) Troponin I Quantitative < 0.017 ng/mL (0.000-0.055) Total Protein 7.9 g/dL (6.4-8.2) Albumin 4.3 g/dL (3.4-5.0) Albumin/Globulin Ratio 1.2 (1.0-1.7) Lipase 110 U/L (73-393) Assessment/Plan Assessment/Plan SBO vs ileus/enteritis already with improvement will check XR, if improved ok to start clears PHYLICIA KENYON MD 03/16/20 1141: CONSULT Assessment/Plan Assessment/Plan Agree with above ELEAZAR MCKAY APRN Mar 16, 2020 09:27 PHYLICIA KENYON MD Mar 16, 2020 11:41
[2020-03-16] MEDS: IV NORMAL SALINE 1000ML BAG 1,000 ML IV SCH ×2 (09:30→20:33)
--- NOTE | 2020-03-16 09:54 | NUR ---
SW following. Discussed with RN, pt from home with family, room air, NPO, ad dylon. RN advised no SW needs at this time. SW will continue to follow.
[2020-03-16] MEDS ORDERED: FAMOTIDINE 20 MG/2 ML VIAL IVP ONE (10:00)
[2020-03-16] MEDS ORDERED: SALIVA STIMULANT AGENT 44ML SPRAY BOTTLE. PO PRN (10:00)
--- NOTE | 2020-03-16 14:53 | PDOC1 ---
History and Physical Date of Admission Date of Admission DATE: 03/16/20 TIME: 0900 Identification/Chief Complaint Chief Complaint abd pain Source Source: Chart review, Patient History of Present Illness History of Present Illness Ms. Holt, is a 79-year-old female admit overnight with acute abd pain, 8/10 w. nausea. . The pain was not associated with any food or beverage. She had sharp pains that migrated around the abdomen, she feels better this AM. . The pain was originally of the left upper quadrant, now it is epigastric in nature. The pain does not radiate to her pelvis. some loose stools this AM. She states that this feels similar to the pain that she felt with that small bowel obstruction. The patient has not taken any medications for the pain and nothing has been able to make it better or worse. She does have anxiety Hx of colon resection by Dr Ayers in 2017 for colon cancer. Was here 2019 for enteritis/SBO Past Medical History Cardiovascular: HTN CENTRAL NERVOUS SYSTEM: TIA GI: No pertinent hx Psych: Anxiety, Depression Musculoskeletal: low back pain Past Surgical History Past Surgical History: Cholecystectomy, Hysterectomy, Colon Resection, Other Family History Family History: No Significant Social History Smoke: No ALCOHOL: none Drugs: None Current Medications Current Medications Current Medications Fentanyl Citrate (Fentanyl 2ml Vial) 25 mcg 1X ONCE IVP Last administered on 03/15/20at 20:03; Start 03/15/20 at 19:30; Stop 03/15/20 at 19:31; Status DC Ondansetron HCl (Zofran) 4 mg 1X ONCE IVP Last administered on 03/15/20 20:03; Start 03/15/20 at 19:30; Stop 03/15/20 at 19:31; Status DC Famotidine (Pepcid Vial) 20 mg 1X ONCE IVP Last administered on 03/15/20 20:03; Start 03/15/20 at 19:30; Stop 03/15/20 at 19:31; Status DC Sodium Chloride 1,000 ml @ 1,000 mls/hr 1X ONCE IV Last administered on 03/15/20at 20:06; Start 03/15/20 at 19:30; Stop 03/15/20 at 20:29; Status DC Iohexol (Omnipaque 300 Mg/ml) 75 ml 1X ONCE IV Last administered on 03/15/20at 20:30; Start 03/15/20 at 20:30; Stop 03/15/20 at 20:31; Status DC Info (CONTRAST GIVEN -- Rx MONITORING) 1 each PRN DAILY PRN MC SEE COMMENTS; Start 03/15/20 at 20:30; Stop 03/17/20 at 20:29 Ondansetron HCl (Zofran) 4 mg PRN Q8HRS PRN IV NAUSEA/VOMITING 1ST CHOICE; Start 03/15/20 at 23:00; Stop 03/16/20 at 22:59 Fentanyl Citrate (Fentanyl 2ml Vial) 50 mcg PRN Q2HRS PRN IV SEVERE PAIN 7-10 Last administered on 03/16/20at 11:18; Start 03/15/20 at 23:00 Sodium Chloride 1,000 ml @ 100 mls/hr Q10H IV Last administered on 03/16/20at 09:30; Start 03/15/20 at 23:30; Stop 03/16/20 at 23:29 Famotidine (Pepcid Vial) 20 mg 1X ONCE IVP Last administered on 03/16/20at 11:14; Start 03/16/20 at 10:00; Stop 03/16/20 at 10:01; Status DC Saliva Substitute (Biotene Moisturizing Mouth) 2 spray PRN Q15MIN PRN PO DRY MOUTH; Start 03/16/20 at 10:00 Active Scripts Active Augmentin 875-125 Tablet (Amoxicillin/Potassium Clav) 1 Each Tablet 1 Tab PO BID 14 Days Flagyl (Metronidazole) 500 Mg Tablet 1 Tab PO BID Zofran Odt (Ondansetron) 4 Mg Tab.rapdis 1 Tab SL Q8HRS Pyridium (Phenazopyridine Hcl) 200 Mg Tablet 200 Mg PO TID Reported Ciprodex Otic Suspension (Ciprofloxacin Hcl/Dexameth) 7.5 Ml Drops.susp 4 Drop RIGHT EAR BID Fluticasone Propionate Nasal [place] (Fluticasone Propionate) 16 Gm [place].susp 2 [place] NS DAILY Benazepril Hcl 40 Mg Tablet 40 Mg PO DAILY Ativan (Lorazepam) 0.5 Mg Tablet 0.5 Mg PO Q8HRS Triamterene-Hctz 37.5-25 Mg Cp (Triamterene/Hydrochlorothiazid) 1 Each Capsule 1 Cap PO DAILY Lorazepam 0.5 Mg Tablet 0.5 Mg PO TID Allergies Allergies: Coded Allergies: No Known Drug Allergies (Unverified , 11/05/18) ROS General: YES: Fatigue; No: Chills, Night Sweats, Malaise, Appetite, Other PSYCHOLOGICAL ROS: No: Anxiety, Behavioral Disorder, Concentration difficultie, Decreased libido, Depression, Disorientation, Hallucinations, Hostility, Irritablity, Memory difficulties, Mood Swings, Obsessive thoughts, Physical abuse, Sexual abuse, Sleep disturbances, Suicidal ideation, Other Eyes: No Blurry vision, No Decreased vision, No Double vision, No Dry eyes, No Excessive tearing, No Eye Pain, No Itchy Eyes, No Loss of vision, No Photophobia, No Scotomata, No Uses contacts, No Uses glasses, No Other HEENT: No: Heacaches, Visual Changes, Hearing change, Nasal congestion, Nasal discharge, Oral lesions, Sinus pain, Sore Throat, Epistaxis, Sneezing, Snoring, Tinnitus, Vertigo, Vocal changes, Other Respiratory: No: Cough, Hemoptysis, Orthopnea, Pleuritic Pain, Shortness of breath, SOB with excertion, Sputum Changes, Stridor, Tachypnea, Wheezing, Other Cardiovascular: No Chest Pain, No Palpitations, No Orthopnea, No Paroxysmal Noc. Dyspnea, No Edema, No Lt Headedness, No Other Gastrointestinal: Yes Nausea, Yes Abdominal Pain, Yes Diarrhea Genitourinary: No Dysuria, No Frequency, No Incontinence, No Hematuria, No Retention, No Discharge, No Urgency, No Pain, No Flank Pain, No Other, No , No , No , No , No , No , No Musculoskeletal: No Gait Disturbance, No Joint Pain, No Joint Stiffness, No Joint Swelling, No Muscle Pain, No Muscular Weakness, No Pain In:, No Swelling In:, No Other Neurological: No Behavorial Changes, No Bowel/Bladder ControlChng, No Confusion, No Dizziness, No Gait Disturbance, No Headaches, No Impaired Coord/balance, No Memory Loss, No Numbness/Tingling, No Seizures, No Speech Problems, No Tremors, No Visual Changes, No Weakness, No Other Skin: No Dry Skin, No Eczema, No Hair Changes, No Lumps, No Mole Changes, No Mottling, No Nail Changes, No Pruritus, No Rash, No Skin Lesion Changes, No Other, No Acne Physical Exam General: Alert Abdomen: Normal bowel sounds, Soft, Other (mild ttp) Extremities: No cyanosis, Normal pulses Skin: No rashes, No significant lesion Psych/Mental Status: Mood NL Vitals Vitals Vital Signs Date Time Temp Pulse Resp B/P (MAP) Pulse Ox O2 Delivery O2 Flow Rate FiO2 03/16/20 12:05 93 Room Air 03/16/20 11:00 98.3 89 18 133/69 (90) 98.3 Labs Labs Laboratory Tests Test 03/15/20 19:20 03/15/20 20:00 Urine Collection Type Unknown Urine Color Yellow Urine Clarity Clear Urine pH 6.0 (<5.0-8.0) Urine Specific [place] 1.015 (1.000-1.030) Urine Protein Negative mg/dL (NEG-TRACE) Urine Glucose (UA) Negative mg/dL (NEG) Urine Ketones (Stick) Negative mg/dL (NEG) Urine Blood Negative (NEG) Urine Nitrite Negative (NEG) Urine Bilirubin Negative (NEG) Urine Urobilinogen Dipstick 0.2 mg/dL (0.2 mg/dL) Urine Leukocyte Esterase Negative (NEG) Urine RBC Occ /HPF (0-2) Urine WBC Occ /HPF (0-4) Urine Squamous Epithelial Cells Mod /LPF Urine Amorphous Sediment Present /HPF Urine Bacteria Few /HPF (0-FEW) Urine Mucus Slight /LPF White Blood Count 9.0 x10^3/uL (4.0-11.0) Red Blood Count 5.34 x10^6/uL (3.50-5.40) Hemoglobin 16.2 g/dL (12.0-15.5) Hematocrit 48.0 % (36.0-47.0) Mean Corpuscular Volume 90 fL (79-100) Mean Corpuscular Hemoglobin 30 pg (25-35) Mean Corpuscular Hemoglobin Concent 34 g/dL (31-37) Red Cell Distribution Width 14.1 % (11.5-14.5) Platelet Count 134 x10^3/uL (140-400) Neutrophils (%) (Auto) 69 % (31-73) Lymphocytes (%) (Auto) 21 % (24-48) Monocytes (%) (Auto) 7 % (0-9) Eosinophils (%) (Auto) 2 % (0-3) Basophils (%) (Auto) 1 % (0-3) Neutrophils # (Auto) 6.2 x10^3/uL (1.8-7.7) Lymphocytes # (Auto) 1.9 x10^3/uL (1.0-4.8) Monocytes # (Auto) 0.6 x10^3/uL (0.0-1.1) Eosinophils # (Auto) 0.2 x10^3/uL (0.0-0.7) Basophils # (Auto) 0.1 x10^3/uL (0.0-0.2) Prothrombin Time 12.9 SEC (11.7-14.0) Prothromb Time International Ratio 1.0 (0.8-1.1) Activated Partial Thromboplast Time 37 SEC (24-38) Sodium Level 144 mmol/L (136-145) Potassium Level 3.9 mmol/L (3.5-5.1) Chloride Level 104 mmol/L (98-107) Carbon Dioxide Level 29 mmol/L (21-32) Anion Gap 11 (6-14) Blood Urea Nitrogen 14 mg/dL (7-20) Creatinine 0.7 mg/dL (0.6-1.0) Estimated GFR (Cockcroft-Gault) 80.5 BUN/Creatinine Ratio 20 (6-20) Glucose Level 108 mg/dL (70-99) Lactic Acid Level 1.5 mmol/L (0.4-2.0) Calcium Level 9.9 mg/dL (8.5-10.1) Magnesium Level 2.0 mg/dL (1.8-2.4) Total Bilirubin 0.4 mg/dL (0.2-1.0) Aspartate Amino Transf (AST/SGOT) 56 U/L (15-37) Alanine Aminotransferase (ALT/SGPT) 98 U/L (14-59) Alkaline Phosphatase 103 U/L (46-116) Creatine Kinase 145 U/L (26-192) Creatine Kinase MB (Mass) 2.8 ng/mL (0.0-3.6) Creatine Kinase MB Relative Index 1.9 % (0-4) Troponin I Quantitative < 0.017 ng/mL (0.000-0.055) Total Protein 7.9 g/dL (6.4-8.2) Albumin 4.3 g/dL (3.4-5.0) Albumin/Globulin Ratio 1.2 (1.0-1.7) Lipase 110 U/L (73-393) Laboratory Tests Test 03/15/20 19:20 03/15/20 20:00 Urine Collection Type Unknown Urine Color Yellow Urine Clarity Clear Urine pH 6.0 (<5.0-8.0) Urine Specific [place] 1.015 (1.000-1.030) Urine Protein Negative mg/dL (NEG-TRACE) Urine Glucose (UA) Negative mg/dL (NEG) Urine Ketones (Stick) Negative mg/dL (NEG) Urine Blood Negative (NEG) Urine Nitrite Negative (NEG) Urine Bilirubin Negative (NEG) Urine Urobilinogen Dipstick 0.2 mg/dL (0.2 mg/dL) Urine Leukocyte Esterase Negative (NEG) Urine RBC Occ /HPF (0-2) Urine WBC Occ /HPF (0-4) Urine Squamous Epithelial Cells Mod /LPF Urine Amorphous Sediment Present /HPF Urine Bacteria Few /HPF (0-FEW) Urine Mucus Slight /LPF White Blood Count 9.0 x10^3/uL (4.0-11.0) Red Blood Count 5.34 x10^6/uL (3.50-5.40) Hemoglobin 16.2 g/dL (12.0-15.5) Hematocrit 48.0 % (36.0-47.0) Mean Corpuscular Volume 90 fL (79-100) Mean Corpuscular Hemoglobin 30 pg (25-35) Mean Corpuscular Hemoglobin Concent 34 g/dL (31-37) Red Cell Distribution Width 14.1 % (11.5-14.5) Platelet Count 134 x10^3/uL (140-400) Neutrophils (%) (Auto) 69 % (31-73) Lymphocytes (%) (Auto) 21 % (24-48) Monocytes (%) (Auto) 7 % (0-9) Eosinophils (%) (Auto) 2 % (0-3) Basophils (%) (Auto) 1 % (0-3) Neutrophils # (Auto) 6.2 x10^3/uL (1.8-7.7) Lymphocytes # (Auto) 1.9 x10^3/uL (1.0-4.8) Monocytes # (Auto) 0.6 x10^3/uL (0.0-1.1) Eosinophils # (Auto) 0.2 x10^3/uL (0.0-0.7) Basophils # (Auto) 0.1 x10^3/uL (0.0-0.2) Prothrombin Time 12.9 SEC (11.7-14.0) Prothromb Time International Ratio 1.0 (0.8-1.1) Activated Partial Thromboplast Time 37 SEC (24-38) Sodium Level 144 mmol/L (136-145) Potassium Level 3.9 mmol/L (3.5-5.1) Chloride Level 104 mmol/L (98-107) Carbon Dioxide Level 29 mmol/L (21-32) Anion Gap 11 (6-14) Blood Urea Nitrogen 14 mg/dL (7-20) Creatinine 0.7 mg/dL (0.6-1.0) Estimated GFR (Cockcroft-Gault) 80.5 BUN/Creatinine Ratio 20 (6-20) Glucose Level 108 mg/dL (70-99) Lactic Acid Level 1.5 mmol/L (0.4-2.0) Calcium Level 9.9 mg/dL (8.5-10.1) Magnesium Level 2.0 mg/dL (1.8-2.4) Total Bilirubin 0.4 mg/dL (0.2-1.0) Aspartate Amino Transf (AST/SGOT) 56 U/L (15-37) Alanine Aminotransferase (ALT/SGPT) 98 U/L (14-59) Alkaline Phosphatase 103 U/L (46-116) Creatine Kinase 145 U/L (26-192) Creatine Kinase MB (Mass) 2.8 ng/mL (0.0-3.6) Creatine Kinase MB Relative Index 1.9 % (0-4) Troponin I Quantitative < 0.017 ng/mL (0.000-0.055) Total Protein 7.9 g/dL (6.4-8.2) Albumin 4.3 g/dL (3.4-5.0) Albumin/Globulin Ratio 1.2 (1.0-1.7) Lipase 110 U/L (73-393) Images Images 1. Findings likely related to partial or early small bowel obstruction with gradual transition point in the left lower quadrant. No evidence for perforation. 2. Mild diffuse hepatic steatosis. VTE Prophylaxis Ordered VTE Prophylaxis Devices: No VTE Pharmacological Prophylaxi: Yes Assessment/Plan Assessment/Plan acute abdominal pain obesity, BMI 35 hypertension admit Justicifation of Admission Dx: Justifications for Admission: Justification of Admission Dx: Yes SIVAKUMAR APARICIO MD Mar 16, 2020 14:53
[2020-03-16] MEDS: LORazepam 0.5 MG TABLET PO SCH ×2 (15:00→21:00)
[2020-03-16] MEDS: ONDANSETRON ODT 4 MG TAB.RAPDIS. PO SCH ×2 (15:00→21:56)
[2020-03-16] MEDS: PHENAZOPYRIDINE 200 MG TABLET. PO SCH ×2 (15:00→21:00)
[2020-03-16] MEDS: metroNIDAZOLE 500 MG TABLET PO SCH ×2 (15:00→21:00)
--- NOTE | 2020-03-16 16:29 | RAD ---
ACUTE ABDOMEN SERIES History: Reason: sbo / Spl. Instructions: / History: Technique: Upright and supine views of the abdomen. Comparison: CT March 15, 2020 Findings: Patchy bibasilar opacities, likely atelectasis. No pneumothorax. Normal heart size. No pneumoperitoneum. Moderately dilated air-filled loops of small bowel within the left mid abdomen, similar compared to prior. Air and stool scattered throughout the imaged colon. Multiple thoracolumbar spondylosis. Postop changes right mid abdomen. Impression: 1. Moderately dilated small bowel loops within the left mid abdomen, similar compared to prior. Electronically signed by: Nigel Palma DO (03/16/2020 4:26 PM) [id number]
[2020-03-16] MEDS ORDERED: LORazepam 0.5 MG TABLET PO PRN (22:30)
[2020-03-16] MEDS ORDERED: ONDANSETRON ODT 4 MG TAB.RAPDIS. PO PRN (22:30)
[2020-03-17 03:00] VITALS: BP 123/58
[2020-03-17 05:21] LABS: BASO % 0 % (0-3); EOS # 0.1 x10^3/uL (0.0-0.7); EOS % 2 % (0-3); HEMATOCRIT 41.9 % (36.0-47.0); LYMPH # 2.1 x10^3/uL (1.0-4.8); LYMPH % 26 % (24-48); MEAN CORPUSCULAR HEMOGLOBIN 30 pg (25-35); MEAN CORPUSCULAR HGB CONC 33 g/dL (31-37); MEAN CORPUSCULAR VOLUME 91 fL (79-100); MONO # 0.7 x10^3/uL (0.0-1.1); MONO % 9 % (0-9); NEUT % 63 % (31-73); PLATELET COUNT 102 x10^3/uL (140-400); RED BLOOD COUNT 4.62 x10^6/uL (3.50-5.40); RED CELL DISTRIBUTION WIDTH 14.1 % (11.5-14.5)
[2020-03-17 05:41] LABS: ALBUMIN 2.9 g/dL (3.4-5.0); ALBUMIN/GLOBULIN RATIO 0.9 (1.0-1.7); CALCIUM 7.9 mg/dL (8.5-10.1); CREATININE 0.7 mg/dL (0.6-1.0); GFR 80.5; TOTAL BILIRUBIN 0.9 mg/dL (0.2-1.0); TOTAL PROTEIN 6.3 g/dL (6.4-8.2)
[2020-03-17] MEDS: metroNIDAZOLE 500 MG TABLET PO SCH ×2 (07:08→13:25)
[2020-03-17] MEDS: PHENAZOPYRIDINE 200 MG TABLET. PO SCH ×2 (07:08→13:25)
[2020-03-17 07:15] VITALS: BP 119/66
--- NOTE | 2020-03-17 09:42 | NUR ---
SW following. Discussed with RN, pt from home with family, room air, clear liquid diet (advancing), ad dylon. RN advised no SW needs, anticipates possible discharge home today with self care. SW will continue to follow.
--- NOTE | 2020-03-17 10:04 | PDOC ---
ELEAZAR MCKAY DANCE COACH 03/17/20 1004: SURGICAL PROGRESS NOTE DATE: 03/17/20 TIME: 10:04 Subjective hungry denies pain no nausea + stool Vital Signs Vital Signs Date Time Temp Pulse Resp B/P (MAP) Pulse Ox O2 Delivery O2 Flow Rate FiO2 03/17/20 07:15 97.9 60 20 119/66 (83) 95 Room Air 97.9 I&O Intake and Output 03/17/20 07:00 Intake Total 2350 ml Output Total 0 ml Balance 2350 ml Intake Oral 350 ml IV Total 2000 ml Output Urine Total 0 ml # Voids 5 # Bowel Movements 1 General: Alert, Oriented X3, Cooperative Abdomen: Soft, No tenderness Labs Laboratory Tests Test 03/15/20 19:20 03/15/20 20:00 03/17/20 04:50 Urine Collection Type Unknown Urine Color Yellow Urine Clarity Clear Urine pH 6.0 (<5.0-8.0) Urine Specific [place] 1.015 (1.000-1.030) Urine Protein Negative mg/dL (NEG-TRACE) Urine Glucose (UA) Negative mg/dL (NEG) Urine Ketones (Stick) Negative mg/dL (NEG) Urine Blood Negative (NEG) Urine Nitrite Negative (NEG) Urine Bilirubin Negative (NEG) Urine Urobilinogen Dipstick 0.2 mg/dL (0.2 mg/dL) Urine Leukocyte Esterase Negative (NEG) Urine RBC Occ /HPF (0-2) Urine WBC Occ /HPF (0-4) Urine Squamous Epithelial Cells Mod /LPF Urine Amorphous Sediment Present /HPF Urine Bacteria Few /HPF (0-FEW) Urine Mucus Slight /LPF White Blood Count 9.0 x10^3/uL (4.0-11.0) 8.0 x10^3/uL (4.0-11.0) Red Blood Count 5.34 x10^6/uL (3.50-5.40) 4.62 x10^6/uL (3.50-5.40) Hemoglobin 16.2 g/dL (12.0-15.5) 14.0 g/dL (12.0-15.5) Hematocrit 48.0 % (36.0-47.0) 41.9 % (36.0-47.0) Mean Corpuscular Volume 90 fL (79-100) 91 fL (79-100) Mean Corpuscular Hemoglobin 30 pg (25-35) 30 pg (25-35) Mean Corpuscular Hemoglobin Concent 34 g/dL (31-37) 33 g/dL (31-37) Red Cell Distribution Width 14.1 % (11.5-14.5) 14.1 % (11.5-14.5) Platelet Count 134 x10^3/uL (140-400) 102 x10^3/uL (140-400) Neutrophils (%) (Auto) 69 % (31-73) 63 % (31-73) Lymphocytes (%) (Auto) 21 % (24-48) 26 % (24-48) Monocytes (%) (Auto) 7 % (0-9) 9 % (0-9) Eosinophils (%) (Auto) 2 % (0-3) 2 % (0-3) Basophils (%) (Auto) 1 % (0-3) 0 % (0-3) Neutrophils # (Auto) 6.2 x10^3/uL (1.8-7.7) 5.0 x10^3/uL (1.8-7.7) Lymphocytes # (Auto) 1.9 x10^3/uL (1.0-4.8) 2.1 x10^3/uL (1.0-4.8) Monocytes # (Auto) 0.6 x10^3/uL (0.0-1.1) 0.7 x10^3/uL (0.0-1.1) Eosinophils # (Auto) 0.2 x10^3/uL (0.0-0.7) 0.1 x10^3/uL (0.0-0.7) Basophils # (Auto) 0.1 x10^3/uL (0.0-0.2) 0.0 x10^3/uL (0.0-0.2) Prothrombin Time 12.9 SEC (11.7-14.0) Prothromb Time International Ratio 1.0 (0.8-1.1) Activated Partial Thromboplast Time 37 SEC (24-38) Sodium Level 144 mmol/L (136-145) 141 mmol/L (136-145) Potassium Level 3.9 mmol/L (3.5-5.1) 4.0 mmol/L (3.5-5.1) Chloride Level 104 mmol/L (98-107) 107 mmol/L (98-107) Carbon Dioxide Level 29 mmol/L (21-32) 28 mmol/L (21-32) Anion Gap 11 (6-14) 6 (6-14) Blood Urea Nitrogen 14 mg/dL (7-20) 10 mg/dL (7-20) Creatinine 0.7 mg/dL (0.6-1.0) 0.7 mg/dL (0.6-1.0) Estimated GFR (Cockcroft-Gault) 80.5 80.5 BUN/Creatinine Ratio 20 (6-20) 14 (6-20) Glucose Level 108 mg/dL (70-99) 102 mg/dL (70-99) Lactic Acid Level 1.5 mmol/L (0.4-2.0) Calcium Level 9.9 mg/dL (8.5-10.1) 7.9 mg/dL (8.5-10.1) Magnesium Level 2.0 mg/dL (1.8-2.4) Total Bilirubin 0.4 mg/dL (0.2-1.0) 0.9 mg/dL (0.2-1.0) Aspartate Amino Transf (AST/SGOT) 56 U/L (15-37) 58 U/L (15-37) Alanine Aminotransferase (ALT/SGPT) 98 U/L (14-59) 90 U/L (14-59) Alkaline Phosphatase 103 U/L (46-116) 77 U/L (46-116) Creatine Kinase 145 U/L (26-192) Creatine Kinase MB (Mass) 2.8 ng/mL (0.0-3.6) Creatine Kinase MB Relative Index 1.9 % (0-4) Troponin I Quantitative < 0.017 ng/mL (0.000-0.055) Total Protein 7.9 g/dL (6.4-8.2) 6.3 g/dL (6.4-8.2) Albumin 4.3 g/dL (3.4-5.0) 2.9 g/dL (3.4-5.0) Albumin/Globulin Ratio 1.2 (1.0-1.7) 0.9 (1.0-1.7) Lipase 110 U/L (73-393) Laboratory Tests Test 03/17/20 04:50 White Blood Count 8.0 x10^3/uL (4.0-11.0) Red Blood Count 4.62 x10^6/uL (3.50-5.40) Hemoglobin 14.0 g/dL (12.0-15.5) Hematocrit 41.9 % (36.0-47.0) Mean Corpuscular Volume 91 fL (79-100) Mean Corpuscular Hemoglobin 30 pg (25-35) Mean Corpuscular Hemoglobin Concent 33 g/dL (31-37) Red Cell Distribution Width 14.1 % (11.5-14.5) Platelet Count 102 x10^3/uL (140-400) Neutrophils (%) (Auto) 63 % (31-73) Lymphocytes (%) (Auto) 26 % (24-48) Monocytes (%) (Auto) 9 % (0-9) Eosinophils (%) (Auto) 2 % (0-3) Basophils (%) (Auto) 0 % (0-3) Neutrophils # (Auto) 5.0 x10^3/uL (1.8-7.7) Lymphocytes # (Auto) 2.1 x10^3/uL (1.0-4.8) Monocytes # (Auto) 0.7 x10^3/uL (0.0-1.1) Eosinophils # (Auto) 0.1 x10^3/uL (0.0-0.7) Basophils # (Auto) 0.0 x10^3/uL (0.0-0.2) Sodium Level 141 mmol/L (136-145) Potassium Level 4.0 mmol/L (3.5-5.1) Chloride Level 107 mmol/L (98-107) Carbon Dioxide Level 28 mmol/L (21-32) Anion Gap 6 (6-14) Blood Urea Nitrogen 10 mg/dL (7-20) Creatinine 0.7 mg/dL (0.6-1.0) Estimated GFR (Cockcroft-Gault) 80.5 BUN/Creatinine Ratio 14 (6-20) Glucose Level 102 mg/dL (70-99) Calcium Level 7.9 mg/dL (8.5-10.1) Total Bilirubin 0.9 mg/dL (0.2-1.0) Aspartate Amino Transf (AST/SGOT) 58 U/L (15-37) Alanine Aminotransferase (ALT/SGPT) 90 U/L (14-59) Alkaline Phosphatase 77 U/L (46-116) Total Protein 6.3 g/dL (6.4-8.2) Albumin 2.9 g/dL (3.4-5.0) Albumin/Globulin Ratio 0.9 (1.0-1.7) Assessment/Plan improved advance diet Justicifation of Admission Dx: Justifications for Admission: Justification of Admission Dx: Yes VIKTORIA TODD MD 03/17/20 1135: SURGICAL PROGRESS NOTE Assessment/Plan Patient seen and examined by me much improved would like to have diet agree with [place] assessment plan advance diet as tolerated no further surgical recommendations ELEAZAR MCKAY APRN Mar 17, 2020 10:04 VIKTORIA TODD MD Mar 17, 2020 11:35
[2020-03-17] MEDS ORDERED: oxyCODONE/APAP 5/325 1 TAB TABLET PO PRN (10:45)
[2020-03-17 10:49] VITALS: BP 130/64
--- NOTE | 2020-03-17 13:56 | PDOC3 ---
Discharge Summary Visit Information Date of Admission: Mar 15, 2020 Date of Discharge: Mar 17, 2020 Final Diagnosis acute abdominal pain partial small bowel obstruction obesity, BMI 35 hypertension Brief Hospital Course Allergies Allergies Coded Allergies Type Severity Reaction Last Updated Verified No Known Drug Allergies 11/05/18 No Vital Signs Vital Signs Date Time Temp Pulse Resp B/P (MAP) Pulse Ox O2 Delivery O2 Flow Rate FiO2 03/17/20 12:04 16 Room Air 03/17/20 10:49 97.9 69 130/64 (86) 96 97.9 Lab Results Laboratory Tests Test 03/15/20 19:20 03/15/20 20:00 03/17/20 04:50 Urine Collection Type Unknown Urine Color Yellow Urine Clarity Clear Urine pH 6.0 (<5.0-8.0) Urine Specific [place] 1.015 (1.000-1.030) Urine Protein Negative mg/dL (NEG-TRACE) Urine Glucose (UA) Negative mg/dL (NEG) Urine Ketones (Stick) Negative mg/dL (NEG) Urine Blood Negative (NEG) Urine Nitrite Negative (NEG) Urine Bilirubin Negative (NEG) Urine Urobilinogen Dipstick 0.2 mg/dL (0.2 mg/dL) Urine Leukocyte Esterase Negative (NEG) Urine RBC Occ /HPF (0-2) Urine WBC Occ /HPF (0-4) Urine Squamous Epithelial Cells Mod /LPF Urine Amorphous Sediment Present /HPF Urine Bacteria Few /HPF (0-FEW) Urine Mucus Slight /LPF White Blood Count 9.0 x10^3/uL (4.0-11.0) 8.0 x10^3/uL (4.0-11.0) Red Blood Count 5.34 x10^6/uL (3.50-5.40) 4.62 x10^6/uL (3.50-5.40) Hemoglobin 16.2 g/dL (12.0-15.5) 14.0 g/dL (12.0-15.5) Hematocrit 48.0 % (36.0-47.0) 41.9 % (36.0-47.0) Mean Corpuscular Volume 90 fL (79-100) 91 fL (79-100) Mean Corpuscular Hemoglobin 30 pg (25-35) 30 pg (25-35) Mean Corpuscular Hemoglobin Concent 34 g/dL (31-37) 33 g/dL (31-37) Red Cell Distribution Width 14.1 % (11.5-14.5) 14.1 % (11.5-14.5) Platelet Count 134 x10^3/uL (140-400) 102 x10^3/uL (140-400) Neutrophils (%) (Auto) 69 % (31-73) 63 % (31-73) Lymphocytes (%) (Auto) 21 % (24-48) 26 % (24-48) Monocytes (%) (Auto) 7 % (0-9) 9 % (0-9) Eosinophils (%) (Auto) 2 % (0-3) 2 % (0-3) Basophils (%) (Auto) 1 % (0-3) 0 % (0-3) Neutrophils # (Auto) 6.2 x10^3/uL (1.8-7.7) 5.0 x10^3/uL (1.8-7.7) Lymphocytes # (Auto) 1.9 x10^3/uL (1.0-4.8) 2.1 x10^3/uL (1.0-4.8) Monocytes # (Auto) 0.6 x10^3/uL (0.0-1.1) 0.7 x10^3/uL (0.0-1.1) Eosinophils # (Auto) 0.2 x10^3/uL (0.0-0.7) 0.1 x10^3/uL (0.0-0.7) Basophils # (Auto) 0.1 x10^3/uL (0.0-0.2) 0.0 x10^3/uL (0.0-0.2) Prothrombin Time 12.9 SEC (11.7-14.0) Prothromb Time International Ratio 1.0 (0.8-1.1) Activated Partial Thromboplast Time 37 SEC (24-38) Sodium Level 144 mmol/L (136-145) 141 mmol/L (136-145) Potassium Level 3.9 mmol/L (3.5-5.1) 4.0 mmol/L (3.5-5.1) Chloride Level 104 mmol/L (98-107) 107 mmol/L (98-107) Carbon Dioxide Level 29 mmol/L (21-32) 28 mmol/L (21-32) Anion Gap 11 (6-14) 6 (6-14) Blood Urea Nitrogen 14 mg/dL (7-20) 10 mg/dL (7-20) Creatinine 0.7 mg/dL (0.6-1.0) 0.7 mg/dL (0.6-1.0) Estimated GFR (Cockcroft-Gault) 80.5 80.5 BUN/Creatinine Ratio 20 (6-20) 14 (6-20) Glucose Level 108 mg/dL (70-99) 102 mg/dL (70-99) Lactic Acid Level 1.5 mmol/L (0.4-2.0) Calcium Level 9.9 mg/dL (8.5-10.1) 7.9 mg/dL (8.5-10.1) Magnesium Level 2.0 mg/dL (1.8-2.4) Total Bilirubin 0.4 mg/dL (0.2-1.0) 0.9 mg/dL (0.2-1.0) Aspartate Amino Transf (AST/SGOT) 56 U/L (15-37) 58 U/L (15-37) Alanine Aminotransferase (ALT/SGPT) 98 U/L (14-59) 90 U/L (14-59) Alkaline Phosphatase 103 U/L (46-116) 77 U/L (46-116) Creatine Kinase 145 U/L (26-192) Creatine Kinase MB (Mass) 2.8 ng/mL (0.0-3.6) Creatine Kinase MB Relative Index 1.9 % (0-4) Troponin I Quantitative < 0.017 ng/mL (0.000-0.055) Total Protein 7.9 g/dL (6.4-8.2) 6.3 g/dL (6.4-8.2) Albumin 4.3 g/dL (3.4-5.0) 2.9 g/dL (3.4-5.0) Albumin/Globulin Ratio 1.2 (1.0-1.7) 0.9 (1.0-1.7) Lipase 110 U/L (73-393) Laboratory Tests Test 03/17/20 04:50 White Blood Count 8.0 x10^3/uL (4.0-11.0) Red Blood Count 4.62 x10^6/uL (3.50-5.40) Hemoglobin 14.0 g/dL (12.0-15.5) Hematocrit 41.9 % (36.0-47.0) Mean Corpuscular Volume 91 fL (79-100) Mean Corpuscular Hemoglobin 30 pg (25-35) Mean Corpuscular Hemoglobin Concent 33 g/dL (31-37) Red Cell Distribution Width 14.1 % (11.5-14.5) Platelet Count 102 x10^3/uL (140-400) Neutrophils (%) (Auto) 63 % (31-73) Lymphocytes (%) (Auto) 26 % (24-48) Monocytes (%) (Auto) 9 % (0-9) Eosinophils (%) (Auto) 2 % (0-3) Basophils (%) (Auto) 0 % (0-3) Neutrophils # (Auto) 5.0 x10^3/uL (1.8-7.7) Lymphocytes # (Auto) 2.1 x10^3/uL (1.0-4.8) Monocytes # (Auto) 0.7 x10^3/uL (0.0-1.1) Eosinophils # (Auto) 0.1 x10^3/uL (0.0-0.7) Basophils # (Auto) 0.0 x10^3/uL (0.0-0.2) Sodium Level 141 mmol/L (136-145) Potassium Level 4.0 mmol/L (3.5-5.1) Chloride Level 107 mmol/L (98-107) Carbon Dioxide Level 28 mmol/L (21-32) Anion Gap 6 (6-14) Blood Urea Nitrogen 10 mg/dL (7-20) Creatinine 0.7 mg/dL (0.6-1.0) Estimated GFR (Cockcroft-Gault) 80.5 BUN/Creatinine Ratio 14 (6-20) Glucose Level 102 mg/dL (70-99) Calcium Level 7.9 mg/dL (8.5-10.1) Total Bilirubin 0.9 mg/dL (0.2-1.0) Aspartate Amino Transf (AST/SGOT) 58 U/L (15-37) Alanine Aminotransferase (ALT/SGPT) 90 U/L (14-59) Alkaline Phosphatase 77 U/L (46-116) Total Protein 6.3 g/dL (6.4-8.2) Albumin 2.9 g/dL (3.4-5.0) Albumin/Globulin Ratio 0.9 (1.0-1.7) Brief Hospital Course Ms. Holt is a 79 old female, admit with acuite abd pain. imaging showed SBO, bowel rest, fluids, pain improved quickly, diet advanced, no pain, Discharge Information Condition at Discharge: Improved Follow Up: Weeks Disposition/Orders: D/C to Home Scheduled Benazepril Hcl (Benazepril Hcl) 40 Mg Tablet, 40 MG PO DAILY for HTN, (Reported) Entered as Reported by: STEVIE REID on 03/16/20213 Last Action: HELD on 03/16/201451 by SIVAKUMAR APARICIO Fluticasone Propionate (Fluticasone Propionate Nasal [place]) 16 Gm [place].susp, 2 SPRAY NS DAILY for ALLERGIES, #1 Ref 11 (Reported) Entered as Reported by: STEVIE REID on 03/16/20213 Last Action: HELD on 03/16/201451 by SIVAKUMAR APARICIO Lorazepam (Ativan) 0.5 Mg Tablet, 0.5 MG PO Q8HRS for ANXIETY, (Reported) Entered as Reported by: STEVIE REID on 03/16/20213 Last Action: HELD on 03/16/201451 by SIVAKUMAR APARICIO Phenazopyridine Hcl (Pyridium) 200 Mg Tablet, 200 MG PO TID, #6 Prescribed by: PADMA LITTLE on 06/10/171936 Last Action: Continued on 03/16/201451 by SIVAKUMAR APARICIO Triamterene/Hydrochlorothiazid (Triamterene-Hctz 37.5-25 Mg Cp) 1 Each Capsule, 1 CAP PO DAILY, (Reported) Entered as Reported by: ADRIENNE POWELL on 05/22/17918 Last Action: HELD on 03/16/201451 by SIVAKUMAR APARICIO Discontinued Medications Amoxicillin/Potassium Clav (Augmentin 875-125 Tablet) 1 Each Tablet, 1 TAB PO BID for 14 Days, #28 Ref 0 Prescribed by: RADHA TREADWELL D.O. on 01/07/202007 Last Action: HELD on 03/16/201451 by SIVAKUMAR APARICIO Ciprofloxacin Hcl/Dexameth (Ciprodex Otic Suspension) 7.5 Ml Drops.susp, 4 DROP RIGHT EAR BID for EAR INFX, #7.5 (Reported) Entered as Reported by: STEVIE REID on 03/16/20 0214 Last Action: HELD on 03/16/201451 by SIVAKUMAR APARICIO Lorazepam (Lorazepam) 0.5 Mg Tablet, 0.5 MG PO TID, (Reported) Entered as Reported by: ADRIENNE POWELL on 05/22/17 0919 Last Action: Continued on 03/16/201451 by SIVAKUMAR APARICIO Metronidazole (Flagyl) 500 Mg Tablet, 1 TAB PO BID for enteritis, #10 Prescribed by: NATALIE LAWSON on 01/14/19 0810 Last Action: Continued on 03/16/201451 by SIVAKUMAR APARICIO Ondansetron (Zofran Odt) 4 Mg Tab.rapdis, 1 TAB SL Q8HRS, #15 Prescribed by: Tarsha Curry APRN on 03/07/182211 Last Action: Continued on 03/16/201451 by SIVAKUMAR APARICIO Patient Instructions Patient Instructions > 30 minutes earlier exam, visited Justicifation of Admission Dx: Justifications for Admission: Justification of Admission Dx: Yes SIVAKUMAR APARICIO MD Mar 17, 2020 13:56
--- NOTE | 2020-03-17 14:52 | NUR ---
Discharge instructions and belongings reviewed with patient, verbalized understanding. Patient was escorted out via wheelchair by Shruti TAMEZ
== END 2020-03-17 14:53 | disposition home or self-care (01) | DRG 390 ==
LOC: ER 18:55 → 4 NORTH 22:57
PROVIDERS: ADMIT Internal Medicine; ATTEND Internal Medicine
DX: K56.600 Partial intestinal obstruction, unspecified as to cause (principal); E66.9 Obesity, unspecified; F17.200 Nicotine dependence, unspecified, uncomplicated; I10 Essential (primary) hypertension; F41.9 Anxiety disorder, unspecified; E78.00 Pure hypercholesterolemia, unspecified; F32.9 Major depressive disorder, single episode, unspecified; K76.0 Fatty (change of) liver, not elsewhere classified; Z85.038 Personal history of other malignant neoplasm of large intestine; Z86.73 Personal history of transient ischemic attack (TIA), and cerebral infarction without residual deficits; Z68.35 Body mass index [BMI] 35.0-35.9, adult; Z90.49 Acquired absence of other specified parts of digestive tract; Z90.710 Acquired absence of both cervix and uterus; Z98.49 Cataract extraction status, unspecified eye
CPT/HCPCS: 36415; 74022; 74177; 80053; 81001; 82553; 83605; 83690; 83735; 84484; 85025; 85610; 85730; 93005; 96361; 96374; 96375; 96376; J2405; J3010; J3490; J7030; Q9967; 99285-25; G0378

== ENCOUNTER 2020-04-05 15:41 | Emergency (ER) | payer BC, OTHER ==
[~2020-04-05] VITALS: Ht 170.2 cm; Wt 95.4 kg
[~2020-04-05 15:41] MED LIST changes: +BENA40TA3 PO; +CIPR7.5D RIGHT EAR; +FLUT16SP NS; +LORA0.5T96 PO
[2020-04-05 17:33] LABS: BILIRUBIN,URINE NEGATIVE (NEG); CLARITY,URINE CLEAR; COLOR,URINE YELLOW; NITRITE,URINE NEGATIVE (NEG); PROTEIN,URINE NEGATIVE (NEG-TRACE); UROBILINOGEN,URINE 0.2 mg/dL (0.2 mg/dL)
[2020-04-05 17:41] LABS: BACTERIA,URINE FEW /HPF (0-FEW); RBC,URINE 0 /HPF (0-2); SQUAMOUS EPITHELIAL CELL,UR MOD /LPF
[2020-04-05 17:56] LABS: BASO # 0.1 x10^3/uL (0.0-0.2); BASO % 1 % (0-3); EOS # 0.1 x10^3/uL (0.0-0.7); EOS % 1 % (0-3); HEMATOCRIT 45.3 % (36.0-47.0); HEMOGLOBIN 15.5 g/dL (12.0-15.5); LYMPH # 1.6 x10^3/uL (1.0-4.8); LYMPH % 21 % (24-48); MEAN CORPUSCULAR HEMOGLOBIN 31 pg (25-35); MEAN CORPUSCULAR HGB CONC 34 g/dL (31-37); MEAN CORPUSCULAR VOLUME 90 fL (79-100); MONO # 0.7 x10^3/uL (0.0-1.1); MONO % 9 % (0-9); NEUT # 5.2 x10^3/uL (1.8-7.7); NEUT % 69 % (31-73); PLATELET COUNT 132 x10^3/uL (140-400); RED BLOOD COUNT 5.03 x10^6/uL (3.50-5.40); RED CELL DISTRIBUTION WIDTH 13.9 % (11.5-14.5); WHITE BLOOD COUNT 7.5 x10^3/uL (4.0-11.0)
[2020-04-05 18:09] LABS: CALCIUM 9.4 mg/dL (8.5-10.1); CREATININE 0.7 mg/dL (0.6-1.0); GFR 80.5; POTASSIUM 3.6 mmol/L (3.5-5.1)
[2020-04-05 18:14] LABS: ALBUMIN 3.8 g/dL (3.4-5.0); TOTAL BILIRUBIN 0.5 mg/dL (0.2-1.0); TOTAL PROTEIN 7.7 g/dL (6.4-8.2)
[2020-04-05] MEDS ORDERED: IOHEXOL 300 MG/ML 100ML VIAL. IV ONE (19:00)
[2020-04-05] MEDS ORDERED: CONTRAST GIVEN. MC PRN (19:15)
--- NOTE | 2020-04-05 20:03 | PHYS DOC ---
Past Medical History Past Medical History: Anxiety, High Cholesterol, Hypertension, TIA, Other Additional Past Medical Histor: Macular degeneration, vertigo,SMALL BOWEL OBSTRUCTION Past Surgical History: Cholecystectomy, Hysterectomy, Other Additional Past Surgical Histo: ankle, breast biopsy, sinus, cataract Smoking Status: Current Every Day Smoker Alcohol Use: None Drug Use: None General Adult EDM: Chief Complaint: ABDOMINAL PAIN HPI: HPI: The history was obtained from the patient. Patient is a 79-year-old female with PMH TIA, hypertension, hyperlipidemia who presents with a chief complaint of dark stool. Patient states he has had dark stool throughout the day. She notes history of colonoscopy but is unsure of the results. She does state that she has a history of colectomy secondary to mass potentially. She notes mild diffuse abdominal discomfort. Does note some lightheadedness. Denies syncope. Denies chest pain or shortness of breath. Denies taking any blood thinners. States she is scheduled to have a colonoscopy in the near future but is unsure of when. Denies urinary symptoms. Denies fevers. No other complaints. Review of Systems: Review of Systems: Constitutional: Denies fever or chills. [] Eyes: Denies change in visual acuity. [] HENT: Denies nasal congestion or sore throat. [] Respiratory: Denies cough or shortness of breath. [] Cardiovascular: Denies chest pain or edema. [] GI: Positive for dark stool and abdominal pain : Denies dysuria. [] Musculoskeletal: Denies back pain or joint pain. [] Integument: Denies rash. [] Neurologic: Denies headache, focal weakness or sensory changes. [] Endocrine: Denies polyuria or polydipsia. [] Lymphatic: Denies swollen glands. [] Psychiatric: Denies depression or anxiety. [] Heart Score: Risk Factors: Risk Factors: DM, Current or recent (<one month) smoker, HTN, HLP, family history of CAD, obesity. Risk Scores: Score 0 - 3: 2.5% MACE over next 6 weeks - Discharge Home Score 4 - 6: 20.3% MACE over next 6 weeks - Admit for Clinical Observation Score 7 - 10: 72.7% MACE over next 6 weeks - Early Invasive Strategies Current Medications: Current Medications Medications (Trade) Dose Ordered Sig/Mirna Start Time Stop Time Status Last Admin Dose Admin Info (CONTRAST GIVEN -- Rx MONITORING) 1 each PRN DAILY PRN 04/05/20 19:15 04/07/20 19:14 Iohexol (Omnipaque 300 Mg/ml) 75 ml 1X ONCE 04/05/20 19:00 04/05/20 19:01 DC Allergies: Allergies: Allergies Coded Allergies Type Severity Reaction Last Updated Verified No Known Drug Allergies 11/05/18 No Physical Exam: PE: Constitutional: Well developed, well nourished, no acute distress, non-toxic appearance. [] HENT: Normocephalic, atraumatic, bilateral external ears normal, oropharynx moist, no oral exudates, nose normal. [] Eyes: PERRLA, EOMI, conjunctiva normal, no discharge. [] Neck: Normal range of motion, no tenderness, supple, no stridor. [] Cardiovascular:Heart rate regular rhythm, no murmur [] Lungs & Thorax: Bilateral breath sounds clear to auscultation [] Abdomen: Soft, nontender, nonacute abdomen. No involuntary guarding or rigidity noted. No acute peritonitis. Rectal exam grossly negative ang guaic negative for blood. Skin: Warm, dry, no erythema, no rash. [] Back: No tenderness, no CVA tenderness. [] Extremities: No tenderness, no cyanosis, no clubbing, ROM intact, no edema. [] Neurologic: Alert and oriented X 3, normal motor function, normal sensory function, no focal deficits noted. [] Psychologic: Affect normal, judgement normal, mood normal. [] Current Patient Data: Labs: Laboratory Tests Test 04/05/20 17:19 04/05/20 17:45 Urine Collection Type Unknown Urine Color Yellow Urine Clarity Clear Urine pH 5.0 (<5.0-8.0) Urine Specific [place] 1.015 (1.000-1.030) Urine Protein Negative mg/dL (NEG-TRACE) Urine Glucose (UA) Negative mg/dL (NEG) Urine Ketones (Stick) Trace mg/dL (NEG) Urine Blood Negative (NEG) Urine Nitrite Negative (NEG) Urine Bilirubin Negative (NEG) Urine Urobilinogen Dipstick 0.2 mg/dL (0.2 mg/dL) Urine Leukocyte Esterase Trace (NEG) Urine RBC 0 /HPF (0-2) Urine WBC 1-4 /HPF (0-4) Urine Squamous Epithelial Cells Mod /LPF Urine Bacteria Few /HPF (0-FEW) Urine Mucus Marked /LPF White Blood Count 7.5 x10^3/uL (4.0-11.0) Red Blood Count 5.03 x10^6/uL (3.50-5.40) Hemoglobin 15.5 g/dL (12.0-15.5) Hematocrit 45.3 % (36.0-47.0) Mean Corpuscular Volume 90 fL (79-100) Mean Corpuscular Hemoglobin 31 pg (25-35) Mean Corpuscular Hemoglobin Concent 34 g/dL (31-37) Red Cell Distribution Width 13.9 % (11.5-14.5) Platelet Count 132 x10^3/uL (140-400) L Neutrophils (%) (Auto) 69 % (31-73) Lymphocytes (%) (Auto) 21 % (24-48) L Monocytes (%) (Auto) 9 % (0-9) Eosinophils (%) (Auto) 1 % (0-3) Basophils (%) (Auto) 1 % (0-3) Neutrophils # (Auto) 5.2 x10^3/uL (1.8-7.7) Lymphocytes # (Auto) 1.6 x10^3/uL (1.0-4.8) Monocytes # (Auto) 0.7 x10^3/uL (0.0-1.1) Eosinophils # (Auto) 0.1 x10^3/uL (0.0-0.7) Basophils # (Auto) 0.1 x10^3/uL (0.0-0.2) Sodium Level 140 mmol/L (136-145) Potassium Level 3.6 mmol/L (3.5-5.1) Chloride Level 105 mmol/L (98-107) Carbon Dioxide Level 26 mmol/L (21-32) Anion Gap 9 (6-14) Blood Urea Nitrogen 13 mg/dL (7-20) Creatinine 0.7 mg/dL (0.6-1.0) Estimated GFR (Cockcroft-Gault) 80.5 BUN/Creatinine Ratio 19 (6-20) Glucose Level 110 mg/dL (70-99) H Lactic Acid Level 1.9 mmol/L (0.4-2.0) Calcium Level 9.4 mg/dL (8.5-10.1) Total Bilirubin 0.5 mg/dL (0.2-1.0) Aspartate Amino Transferase (AST) 60 U/L (15-37) H Alanine Aminotransferase (ALT) 107 U/L (14-59) H Alkaline Phosphatase 83 U/L (46-116) Total Protein 7.7 g/dL (6.4-8.2) Albumin 3.8 g/dL (3.4-5.0) Albumin/Globulin Ratio 1.0 (1.0-1.7) Lipase 51 U/L (73-393) L Laboratory Tests 04/05/20 17:45 Laboratory Tests 04/05/20 17:45 Vital Signs: Vital Signs Date Time Temp Pulse Resp B/P (MAP) Pulse Ox O2 Delivery O2 Flow Rate FiO2 04/05/20 17:18 98.7 96 20 155/76 (102) 95 Room Air 98.7 EKG: EKG: [] EKG consistent with normal sinus rhythm. Ventricular to be 88 bpm. Left axis noted. No acute ischemic changes appreciated. Radiology/Procedures: Radiology/Procedures: [facility] [address] [place] [address] IMAGING REPORT Signed PATIENT: MICKIE MUSE ACCOUNT: [id number] : 1940 LOCATION: ER AGE: 79 SEX: F EXAM STATUS: REG ER ORD. PHYSICIAN: COURTNEY MARQUES DO REASON: abdominal pain diffuse PROCEDURE: CT ABD PELV W/ IV CONTRST ONLY Exam: CT of abdomen and pelvis with contrast INDICATION: Diffuse abdominal pain TECHNIQUE: Sequential axial images through the abdomen and pelvis obtained following the administration of 75 mL of Omni 300 IV contrast. Sagittal and coronal reformatted images were reconstructed from the axial data and reviewed. Comparisons: 03/15/2020 FINDINGS: Heart size is normal. No pericardial effusion. Visualized lung bases are clear. No pleural effusion. Liver, spleen, pancreas and adrenals are unremarkable. Gallbladder surgically absent. No perinephric inflammation or hydronephrosis. No renal or ureteral calculi are identified. Bladder is distended and appears thin-walled. Uterus is absent. No abnormal adnexal mass. Large and small bowel are unremarkable. No obstruction. No free abdominal air or fluid. Abdominal aorta has a normal course and caliber. Abdominal vasculature is patent. No enlarged intra-abdominal lymph nodes are identified. No suspicious osseous lesions or acute fractures. IMPRESSION: No acute process identified in the abdomen or pelvis. Exposure: One or more of the following in the visualized dose reduction techniques were utilized for this examination: 1. Automated exposure control 2. Adjustment of the MA and/or KV according to patient size 3. Use of iterative of reconstructive technique Electronically signed by: Elías Strickland MD (04/05/2020 8:39 PM) [id number] DICTATED and SIGNED BY: ELÍAS STRICKLAND MD DATE: 04/05/202038 [] Course & Med Decision Making: Course & Med Decision Making Pertinent Labs and Imaging studies reviewed. (See chart for details) [] Patient is a well-appearing 79-year-old female who presents with chief complaint of dark-colored stool. Initial vital signs unremarkable. Exam noted above. CT imaging reassuring. CBC with normal hemoglobin. She does not take any blood thinners. Overall I do feel the patient is appropriate for outpatient management. She does state that she has a GI specialist and colonoscopy scheduled the next several days. I encouraged her to follow-up with this appointment. She has no lightheadedness on ambulation. Repeat abdominal exam remains with a soft nontender abdomen. Return precautions were discussed and understood. She was instructed to return in 12 to 24 hours should her symptoms not improve or worsen. She is in agreement with this. She has tolerated p.o. Stable for discharge home. [facility] Disclaimer: [facility] Disclaimer: This electronic medical record was generated, in whole or in part, using a voice recognition dictation system. Departure Departure Impression: Primary Impression: Abdominal pain Qualified Codes: R10.84 - Generalized abdominal pain Disposition: HOME, SELF-CARE Condition: STABLE Referrals: OTIS CHRISTENSEN MD (PCP) Patient Instructions: Colonoscopy Additional Instructions: Please return the emergency department the next 12 to 24 hours should your symptoms not improve or worsen. Justicifation of Admission Dx: Justifications for Admission: Justification of Admission Dx: N/A COURTNEY MARQUES DO Apr 05, 2020 20:03
--- NOTE | 2020-04-05 20:41 | RAD ---
Exam: CT of abdomen and pelvis with contrast INDICATION: Diffuse abdominal pain TECHNIQUE: Sequential axial images through the abdomen and pelvis obtained following the administration of 75 mL of Omni 300 IV contrast. Sagittal and coronal reformatted images were reconstructed from the axial data and reviewed. Comparisons: 03/15/2020 FINDINGS: Heart size is normal. No pericardial effusion. Visualized lung bases are clear. No pleural effusion. Liver, spleen, pancreas and adrenals are unremarkable. Gallbladder surgically absent. No perinephric inflammation or hydronephrosis. No renal or ureteral calculi are identified. Bladder is distended and appears thin-walled. Uterus is absent. No abnormal adnexal mass. Large and small bowel are unremarkable. No obstruction. No free abdominal air or fluid. Abdominal aorta has a normal course and caliber. Abdominal vasculature is patent. No enlarged intra-abdominal lymph nodes are identified. No suspicious osseous lesions or acute fractures. IMPRESSION: No acute process identified in the abdomen or pelvis. Exposure: One or more of the following in the visualized dose reduction techniques were utilized for this examination: 1. Automated exposure control 2. Adjustment of the MA and/or KV according to patient size 3. Use of iterative of reconstructive technique Electronically signed by: Elías Dempsey MD (04/05/2020 8:39 PM) [id number]
[2020-04-05 21:19] VITALS: BP 165/73
[2020-04-06] MEDS ORDERED: IOHEXOL 300 MG/ML 100ML VIAL. ONE (01:03)
--- NOTE | 2020-04-06 06:08 | EKG ---
[facility] [address] [place] [address] Test Date: 2020-04-05 Test Time: 17:48:25 Pat Name: MICKIE MUSE Department: Room: Gender: F Control Systems Technician: : 1940 Requested By: COURTNEY MARQUES Order Number: [id number] Reading MD: Measurements Intervals [place] Rate: 88 P: 42 NV: 228 QRS: -5 QRSD: 82 T: 43 QT: 368 QTc: 449 Interpretive Statements SINUS RHYTHM PROLONGED NV INTERVAL LEFTWARD AXIS ABNORMAL ECG RI6.02 No previous ECG available for comparison
== END 2020-04-05 21:41 | disposition home or self-care (01) ==
LOC: ER 15:41
DX: R10.84 Generalized abdominal pain (principal); R42 Dizziness and giddiness; E78.00 Pure hypercholesterolemia, unspecified; I10 Essential (primary) hypertension; F17.200 Nicotine dependence, unspecified, uncomplicated; Z86.73 Personal history of transient ischemic attack (TIA), and cerebral infarction without residual deficits
CPT/HCPCS: 36415; 74177; 80053; 81001; 83605; 83690; 85025; 87086; 93005; 99285; Q9967

== ENCOUNTER → 2020-04-20 | Outpatient (CLI) | payer BC, OTHER ==
[2020-04-05 21:19] VITALS: BP 165/73
--- NOTE | 2020-04-20 12:19 | KCIC ---
SMALL BOWEL SERIES History: Left-sided abdominal pain, colon resection 2016 Comparison: April 05, 2020 CT abdomen pelvis exam Findings: Bundle Packer radiograph demonstrates nonspecific bowel gas pattern. There are several likely phleboliths in the left pelvis. Small bowel examination was performed. Small bowel is not significantly dilated. There is no evidence of bowel obstruction, contrast seen in the transverse colon at about 60 minutes. There has been right hemicolectomy. Impression: 1. There is no evidence of small bowel obstruction. Electronically signed by: Amauri Linton MD (04/20/2020 12:17 PM) [id number]
== END | disposition home or self-care (01) ==
LOC: KCIC 09:16
PROVIDERS: ATTEND Internal Medicine Gastroenterology
DX: K56.699 Other intestinal obstruction unspecified as to partial versus complete obstruction (principal); Z85.038 Personal history of other malignant neoplasm of large intestine
CPT/HCPCS: 74250

== ENCOUNTER → 2020-05-02 | Outpatient (CLI) | payer BC, OTHER ==
[2020-04-05 21:19] VITALS: BP 165/73
== END | disposition home or self-care (01) ==
LOC: LAB 09:34
PROVIDERS: ATTEND Internal Medicine Gastroenterology
DX: Z01.812 Encounter for preprocedural laboratory examination (principal); Z20.828 Contact with and (suspected) exposure to other viral communicable diseases; K21.9 Gastro-esophageal reflux disease without esophagitis
CPT/HCPCS: U0003-CS

== ENCOUNTER → 2020-05-04 | Day surgery (SDC) | payer BC, OTHER ==
[~2020-05-04] MED LIST changes: +HYDROmorphone 2 MG/ML VIAL IV PRN; +IV RINGERS,LACTATED 1000ML 1,000 ML IV SCH; +MORPHINE SULFATE 2 MG/ML VIAL. IV PRN; +ONDANSETRON PF 4 MG/2 ML VIAL. IV PRN; +PROCHLORPERAZINE 10 MG/2 ML VIAL. IV PRN; +PROPOFOL 10 MG/ML (20ML) VIAL. IV ONE; +fentaNYL PF VIAL 100 MCG/2 ML VIAL IV PRN
[2020-05-04 10:20] VITALS: BP 151/79
--- NOTE | 2020-05-05 16:07 | PATHOLOGY ---
[facility] Accession Number: [id number] . 01 Material submitted: . PART A: small bowel - SMALL BOWEL BX PART B: stomach - GASTRIC ANTRUM AND BODY BX PART C: esophagus - DISTAL ESOPHAGEAL BX. Modifiers: distal PART D: ileum - TERMINAL ILEUM BX PART E: colon - ILEOCOLONIC ANASTOMOSIS BX PART F: colon - TRANSVERSE COLON BX. Modifiers: transverse PART G: colon - DESCENDING COLON BX. Modifiers: descending PART H: colon - DESCENDING COLON POLYP. Modifiers: descending PART I: sigmoid colon - SIGMOID COLON BX PART J: sigmoid colon - SIGMOID POLYP BX PART K: rectum - RECTAL BX'S . 01 Clinical history: . GERD, HX OF COLON CANCER, MELENA . 02 Diagnosis: A. Small bowel biopsies: - No significant pathologic abnormalities. . B. Gastric biopsies, gastric antrum and body: - Chronic gastritis, mild, with focal intestinal metaplasia. . C. Esophageal biopsies, distal esophagus: - Reflux esophagitis with focal moderate active chronic inflammation. . D. Small bowel mucosa, terminal ileum biopsies: - Focal mild nonspecific ileitis with two mucosal-associated lymphoid aggregates. . E. Small intestine and colonic mucosa, ileocolonic anastomosis biopsies: - Mild to moderate active chronic inflammation with few mucosal-associated lymphoid aggregates. . F. Colonic mucosa, transverse colon biopsies: - No significant pathologic abnormalities. . G. Colonic mucosa, descending colon biopsies: - No significant pathologic abnormalities. . H. Colonic mucosa, descending colon polyp: - Hyperplastic polyp. . I. Colonic mucosa, sigmoid colon biopsies: - No significant pathologic abnormalities. . J. Colonic mucosa, sigmoid colon polyp: - Hyperplastic polyp. . K. Colorectal mucosa, rectal biopsies: - No significant pathologic abnormalities. (JPM:[facility] 05/05/2020) [facility] 1542 Local . 02 Comment: Sections of the small bowel biopsy reveal segments of duodenal and small intestine mucosa. Where best oriented, the mucosal villi show no sprue-like changes or significant inflammatory changes. . Sections of the gastric biopsy reveal segments of gastric antral and gastric body mucosa showing congestion, mild chronic inflammation, and focal intestinal metaplasia. There are also two segments of duodenal mucosa showing no significant pathologic abnormalities. A properly controlled immunoperoxidase stain for Helicobacter is negative for Helicobacter organisms. . Sections of the distal esophageal biopsy reveal segments of hyperplastic squamous esophageal mucosa, and two segments of esophagogastric mucosa showing moderate active chronic inflammation with focal basal squamous epithelial atypia. The findings are consistent with reflux esophagitis. There is no evidence of Altamirano's change, dysplasia, or malignancy. . Sections of the terminal ileum biopsy reveal segments of small intestine mucosa. The mucosal villi show focal congestion and mild acute and chronic inflammation. There are two mucosal-associated lymphoid aggregates. There are no sprue-like changes. . Sections of the ileocolic anastomosis biopsy reveal segments of small intestine and colonic mucosa showing congestion, edema, and mild to moderate active chronic inflammation. . Sections of the transverse colon, descending colon, sigmoid colon, and rectal biopsies reveal segments of colonic and rectal mucosa show no evidence of a chronic destructive colitis or microscopic colitis. . Sections of the descending colon and sigmoid colon polyp biopsies reveal hyperplastic polyps. There are no adenomatous changes or evidence of malignancy. . (JPM:[facility] 05/05/2020) . Special stain performed: Immunoperoxidase for Helicobacter on B1. . 02 Electronically signed: . Lenny Garcia MD, Pathologist NPI- [id number] . 01 Gross description: . A. Received in formalin labeled "Jonathon, Holly, small bowel BX" are multiple gomez-brown soft tissue fragments measuring in aggregate 0.7 x 0.5 x 0.1 cm. The specimen is submitted entirely in A1. . B. Received in formalin labeled "Jonathon, Holly, antrum and body gastric BX" are multiple gomez-brown soft tissue fragments measuring in aggregate 0.8 x 0.8 x 0.1 cm. The specimen is submitted entirely in B1. . C. Received in formalin labeled "Jonathon, Holly, distal esophageal BX" are multiple gomez-brown soft tissue fragments measuring in aggregate 1.5 x 0.6 x 0.1 cm. The specimen is submitted entirely in C1. . D. Received in formalin labeled "Jonathon, Holly, terminal ileum BX" are two gomez-brown soft tissue fragments measuring in aggregate 0.5 x 0.4 x 0.1 cm. The specimen is submitted entirely in D1. . E. Received in formalin labeled "Holly Holt, ileocolonic anastomosis BX" are two gomez-brown soft tissue fragments measuring in aggregate 0.5 x 0.4 x 0.1 cm. The specimen is submitted entirely in E1. . F. Received in formalin labeled "Holly Holt, transverse colon BX" are two gomez-brown soft tissue fragments measuring in aggregate 0.5 x 0.5 x 0.1 cm. The specimen is submitted entirely in F1. . G. Received in formalin labeled "oHlly Holt, descending colon BX" are two gomez-brown soft tissue fragments measuring in aggregate 0.5 x 0.5 x 0.1 cm. The specimen is submitted entirely in G1. . H. Received in formalin labeled "Holly Holt, descending colon polyp" is a gomez-brown soft tissue fragment measuring 0.5 x 0.4 x 0.1 cm. The specimen is submitted entirely in H1. . I. Received in formalin labeled "Holly Holt, sigmoid colon BX" are two gomez-brown soft tissue fragments measuring in aggregate 0.5 x 0.5 x 0.1 cm. The specimen is submitted entirely in I1. . J. Received in formalin labeled "Holly Holt, sigmoid colon polyps" is a single fragment of gomez-brown soft tissue measuring 0.3 x 0.3 x 0.1 cm. The container and lid are carefully examined and no other tissue is identified. The specimen is submitted entirely in J1. . K. Received in formalin labeled "Holly Holt, rectal BXs" are two gomez-brown soft tissue fragments measuring in aggregate 1.0 x 0.4 x 0.1 cm. The specimen is submitted entirely in K1. ([facility]; 05/04/2020) [facility] 05/04/2020 1758 Local . 02 Pathologist provided ICD-10: K29.50, K52.9, K63.5 . 02 CPT . 541041, 661822, 158758, 440128, 103823, 077457, 504692, 308237, 638932, 044146, [id number], [id number] Specimen Comment: A courtesy copy of this report has been sent to [phone], [phone] Specimen Comment: [id number] Specimen Comment: Report sent to / DR CHRISTENSEN Performed at: [address] [id number] MD Nick Lang MD Phone: [phone] Performed at: [facility] [address], [place] [id number] MD Lenny Garcia MD Phone: [phone]
== END | disposition home or self-care (01) ==
LOC: ENDOS 08:13
PROVIDERS: ATTEND Internal Medicine Gastroenterology
DX: K92.1 Melena (principal); K21.9 Gastro-esophageal reflux disease without esophagitis; K63.5 Polyp of colon; K29.50 Unspecified chronic gastritis without bleeding; F17.210 Nicotine dependence, cigarettes, uncomplicated; F41.9 Anxiety disorder, unspecified; F32.9 Major depressive disorder, single episode, unspecified; Z98.890 Other specified postprocedural states; Z79.899 Other long term (current) drug therapy
CPT/HCPCS: 43239; 45380; 87426; 88305; 88342; J2704

== ENCOUNTER → 2021-03-02 | Outpatient (CLI) | payer BC, OTHER ==
[2020-06-13 11:00] VITALS: BP 105/60
[~2021-03-02] MED LIST changes: +GEMF600T20 PO; -GEMF600T8 PO; -HYDROmorphone 2 MG/ML VIAL IV PRN; -IV RINGERS,LACTATED 1000ML 1,000 ML IV SCH; -MORPHINE SULFATE 2 MG/ML VIAL. IV PRN; -ONDANSETRON PF 4 MG/2 ML VIAL. IV PRN; +PANT40TA77 PO; -PROCHLORPERAZINE 10 MG/2 ML VIAL. IV PRN; -PROPOFOL 10 MG/ML (20ML) VIAL. IV ONE; -fentaNYL PF VIAL 100 MCG/2 ML VIAL IV PRN
--- NOTE | 2021-03-02 14:04 | KCIC ---
EXAM: AP, lateral and lumbosacral spot views with bilateral oblique views of the lumbar spine DATE: 03/02/2021 11:30 AM INDICATION: Reason: LBP 1 week, no known injury. Colon surgery this year. / Spl. Instructions: / Hi story: COMPARISON: No Prior FINDINGS: 5 nonrib-bearing lumbar-type vertebral bodies. Vertebral body heights are preserved. Moderate L5-S1 d isc height loss. On the oblique views no definite pars defects. Mild facet degenerative change L2-3 a nd below. No spondylolisthesis. Aortic vascular calcifications are seen. Decreased bone mineral densi ty. IMPRESSION: 1. Multilevel spondylosis as above 2. Negative acute fracture or subluxation. Electronically signed by: Eleno Snowden MD (03/02/2021 2:02 PM) [id number]
--- NOTE | 2021-03-02 14:05 | KCIC ---
EXAM: Sacrum coccyx DATE: 03/02/2021 11:30 AM COMPARISON: No prior INDICATION: Pain-low back pain. FINDINGS: Dedicated AP and lateral views of the sacrum/coccyx are negative for acute or subacute fracture. Neg ative sacro-coccygeal dissociation. Negative SI joint diastasis or degenerative/proliferative changes . Decreased bone mineral density. Vascular calcifications are seen. IMPRESSION: Within the constraints of osteopenia no acute fracture or dislocation. Electronically signed by: Eleno Snowden MD (03/02/2021 2:03 PM) [id number]
== END ==
LOC: KCIC 11:17
PROVIDERS: ATTEND Nurse Practitioner
DX: M47.816 Spondylosis without myelopathy or radiculopathy, lumbar region (principal); M85.88 Other specified disorders of bone density and structure, other site; I70.0 Atherosclerosis of aorta
CPT/HCPCS: 72110; 72220

== ENCOUNTER → 2021-03-09 | Outpatient (CLI) | payer BC, OTHER ==
[2020-06-13 11:00] VITALS: BP 105/60
[2021-03-09 10:42] LABS: BASO # 0.1 x10^3/uL (0.0-0.2); BASO % 1 % (0-3); EOS # 0.1 x10^3/uL (0.0-0.7); EOS % 2 % (0-3); HEMATOCRIT 43.7 % (36.0-47.0); HEMOGLOBIN 14.8 g/dL (12.0-15.5); LYMPH # 2.2 x10^3/uL (1.0-4.8); LYMPH % 31 % (24-48); MEAN CORPUSCULAR HEMOGLOBIN 31 pg (25-35); MEAN CORPUSCULAR HGB CONC 34 g/dL (31-37); MEAN CORPUSCULAR VOLUME 91 fL (79-100); MONO # 0.5 x10^3/uL (0.0-1.1); MONO % 7 % (0-9); NEUT # 4.2 x10^3/uL (1.8-7.7); NEUT % 60 % (31-73); PLATELET COUNT 152 x10^3/uL (140-400); RED BLOOD COUNT 4.82 x10^6/uL (3.50-5.40); RED CELL DISTRIBUTION WIDTH 14.5 % (11.5-14.5)
[2021-03-09 10:55] LABS: CALCIUM 9.1 mg/dL (8.5-10.1); CREATININE 0.6 mg/dL (0.6-1.0); GFR 95.9
[2021-03-09 10:59] LABS: ALBUMIN 3.6 g/dL (3.4-5.0); ALBUMIN/GLOBULIN RATIO 0.9 (1.0-1.7); TOTAL BILIRUBIN 0.3 mg/dL (0.2-1.0); TOTAL PROTEIN 7.6 g/dL (6.4-8.2)
== END ==
LOC: ONCLAB 10:28
PROVIDERS: ATTEND Internal Medicine Hematology & Oncology
DX: C17.1 Malignant neoplasm of jejunum (principal)
CPT/HCPCS: 36415; 80053; 82378; 85025

== ENCOUNTER → 2021-03-20 | Outpatient (CLI) | payer BC, OTHER ==
[2020-06-13 11:00] VITALS: BP 105/60
[~2021-03-20] MED LIST changes: +IOHEXOL 240 MG/ML 50ML VIAL. PO ONE; +IOHEXOL 300 MG/ML 100ML VIAL. IV ONE
--- NOTE | 2021-03-20 12:55 | RAD ---
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 Axial, coronal and sagittal reformatted images were generated. ---PQRS compliance statement - One or more of the following individualized dose reduction techniques were utilized for this study: 1. Automated exposure control 2. Adjustment of the mA and/or kV according to patient size 3. Use of iterative reconstruction technique--- FINDINGS: Chest: Heart is not enlarged. No pericardial effusion. No pleural effusion. Coronary calcifications. No pneu mothorax. Aorta is grossly normal in caliber. No thoracic lymphadenopathy. Emphysematous changes are seen. Right lower lobe nodular opacity measures 6 x 12 mm stable to 12/25/19 19. 4 mm left lower lobe lung nodule seen. Abdomen and Pelvis: No focal liver lesion. There has been a cholecystectomy. No biliary ductal dilatation. Spleen, adrena l glands and pancreas are unremarkable. Hepatic hypoattenuation, likely fatty liver. Symmetric nephrograms. Subcentimeter hypodense right upper pole renal lesion likely cystic. Right upp er pole renal cyst is also seen. No hydronephrosis. No hydroureter. Bladder is unremarkable. Moderate colonic stool content is seen. No small or large bowel dilatation. No bowel obstruction. There has been a hysterectomy. Aortobiiliac calcifications. No abdominal or pelvic lymphadenopathy. S mall iliac chain lymph nodes are seen. Degenerative changes of the spine are seen. IMPRESSION: 1. No bowel obstruction. 2. Bladder wall thickening, cystitis or from underdistention and can be correlated with urinalysis. 3. No thoracic, abdominal or pelvic lymphadenopathy. Electronically signed by: Eleno Snowden MD (03/20/2021 12:52 PM) [id number]
== END ==
LOC: CT 08:46
PROVIDERS: ATTEND Internal Medicine Hematology & Oncology
DX: C17.1 Malignant neoplasm of jejunum (principal); J43.9 Emphysema, unspecified; R91.1 Solitary pulmonary nodule; I25.10 Atherosclerotic heart disease of native coronary artery without angina pectoris; N28.1 Cyst of kidney, acquired
CPT/HCPCS: 71260; 74177; Q9966; Q9967

== ENCOUNTER → 2021-05-07 | Outpatient (CLI) | payer BC, OTHER ==
[2020-06-13 11:00] VITALS: BP 105/60
[~2021-05-07] MED LIST changes: -IOHEXOL 240 MG/ML 50ML VIAL. PO ONE; -IOHEXOL 300 MG/ML 100ML VIAL. IV ONE
--- NOTE | 2021-05-07 12:11 | RAD ---
EXAM: Bilateral screening mammogram. HISTORY: 80-year-old female presents for screening mammography. TECHNIQUE: Full-field digital craniocaudal and mediolateral oblique views of both breasts are obtaine d for evaluation. Computer aided detection was applied. COMPARISON: 02/21/2020, 07/21/2019, 05/05/2019, 01/28/2018 BREAST PARENCHYMAL DENSITY: Level B - Scattered fibroglandular densities. FINDINGS: There is no new suspicious mass, microcalcification or region of architectural distortion. There is stable areas of nodularity and asymmetry within the right greater than left breast. There ar e benign calcifications within both breasts. IMPRESSION: BI-RADS Category 2: Benign finding(s). RECOMMENDATION: Annual mammography is recommended. If your mammogram demonstrates that you have dense breast tissue, which could hide abnormalities, and if you have other risk factors for breast cancer that have been identified, you might benefit from s upplemental screening tests that may be suggested by your ordering physician. Dense breast tissue, i n and of itself, is a relatively common condition. This information is not provided to cause undue c oncern, but rather to raise your awareness and to promote discussion with your physician regarding th e presence of other risk factors, in addition to dense breast tissue. A report of your mammography re sults will be sent to you and your physician. You should contact your physician if you have any ques tions or concerns regarding this report. Mammography is a sensitive method for finding small breast cancers, but it does not detect them all a nd is not a substitute for careful clinical examination. A negative mammogram does not negate a clin ically suspicious finding and should not result in delay in biopsying a clinically suspicious abnorma lity. PQRS compliance statement - Patient information was entered into a reminder system with a target due date for the next mammogram. "Our facility is accredited by the [employer] Mammography Program." Electronically signed by: Nya Cervantes MD (05/07/2021 12:09 PM) [id number]
== END ==
LOC: MAMMO 10:37
PROVIDERS: ATTEND Nurse Practitioner
DX: Z12.31 Encounter for screening mammogram for malignant neoplasm of breast (principal); R92.1 Mammographic calcification found on diagnostic imaging of breast
CPT/HCPCS: 77067

== ENCOUNTER → 2021-06-08 | Outpatient (CLI) | payer BC, OTHER ==
[2020-06-13 11:00] VITALS: BP 105/60
[~2021-06-08] MED LIST changes: -BENA20TA4 PO; +BENA20TA84 PO; -BENA40TA3 PO; +BENA40TA74 PO; +LIDO1ADH63 TP
[2021-06-08 10:18] LABS: BASO # 0.1 x10^3/uL (0.0-0.2); BASO % 1 % (0-3); EOS # 0.1 x10^3/uL (0.0-0.7); EOS % 2 % (0-3); HEMATOCRIT 46.8 % (36.0-47.0); HEMOGLOBIN 15.2 g/dL (12.0-15.5); LYMPH # 2.2 x10^3/uL (1.0-4.8); LYMPH % 31 % (24-48); MEAN CORPUSCULAR HEMOGLOBIN 30 pg (25-35); MEAN CORPUSCULAR HGB CONC 32 g/dL (31-37); MEAN CORPUSCULAR VOLUME 92 fL (79-100); MONO # 0.5 x10^3/uL (0.0-1.1); MONO % 7 % (0-9); NEUT # 4.3 x10^3/uL (1.8-7.7); NEUT % 59 % (31-73); PLATELET COUNT 163 x10^3/uL (140-400); RED BLOOD COUNT 5.09 x10^6/uL (3.50-5.40); RED CELL DISTRIBUTION WIDTH 14.5 % (11.5-14.5); WHITE BLOOD COUNT 7.2 x10^3/uL (4.0-11.0)
[2021-06-08 10:26] LABS: CREATININE 0.6 mg/dL (0.6-1.0); GFR 95.9
[2021-06-08 10:32] LABS: ALBUMIN 3.7 g/dL (3.4-5.0); TOTAL BILIRUBIN 0.4 mg/dL (0.2-1.0); TOTAL PROTEIN 7.3 g/dL (6.4-8.2)
== END ==
LOC: ONCLAB 09:57
PROVIDERS: ATTEND Internal Medicine Hematology & Oncology
DX: C17.1 Malignant neoplasm of jejunum (principal)
CPT/HCPCS: 36415; 80053; 82378; 85025

== ENCOUNTER 2021-07-02 13:32 | Emergency (ER) | payer BC, OTHER ==
[~2021-07-02] VITALS: Ht 172.7 cm; Wt 94.0 kg
[~2021-07-02 13:32] MED LIST changes: -LIDO1ADH63 TP
[2021-07-02] MEDS ORDERED: LIDOCAINE (700MG/PATCH) PATCH. TD ONE (15:15)
[2021-07-02] MEDS ORDERED: ACETAMINOPHEN 325 MG TABLET. PO ONE (15:15)
[2021-07-02 16:09] LABS: BASO % 1 % (0-3); EOS # 0.1 x10^3/uL (0.0-0.7); EOS % 1 % (0-3); HEMATOCRIT 48.2 % (36.0-47.0); HEMOGLOBIN 15.4 g/dL (12.0-15.5); LYMPH # 2.6 x10^3/uL (1.0-4.8); LYMPH % 31 % (24-48); MEAN CORPUSCULAR HEMOGLOBIN 30 pg (25-35); MEAN CORPUSCULAR HGB CONC 32 g/dL (31-37); MEAN CORPUSCULAR VOLUME 93 fL (79-100); MONO # 0.7 x10^3/uL (0.0-1.1); MONO % 8 % (0-9); NEUT # 4.9 x10^3/uL (1.8-7.7); NEUT % 59 % (31-73); PLATELET COUNT 140 x10^3/uL (140-400); RED BLOOD COUNT 5.21 x10^6/uL (3.50-5.40); RED CELL DISTRIBUTION WIDTH 14.7 % (11.5-14.5); WHITE BLOOD COUNT 8.3 x10^3/uL (4.0-11.0)
[2021-07-02 16:20] LABS: CALCIUM 9.2 mg/dL (8.5-10.1); CREATININE 0.7 mg/dL (0.6-1.0); GFR 80.1; POTASSIUM 4.1 mmol/L (3.5-5.1)
--- NOTE | 2021-07-02 16:20 | RAD ---
CT LUMBAR SPINE WO Date: 07/02/2021 3:38 PM Indication: Low back pain lumbar sacral area Comparison: None. Technique: Helical CT images of the lumbar spine were obtained without contrast. Coronal and sagitta l reformatted images were also performed. One or more of the following dose reduction techniques were utilized: Automated exposure control (AEC), Adjustment of mA and/or kV according to patient size, Us e of iterative reconstruction technique such as ASiR, CT scan done according to ALARA and image gentl y/image wisely. Findings: The lumbar spine is normally aligned. No acute fracture. Vertebral body heights are maintained withou t compression deformity. No aggressive lytic or blastic osseous lesion. Mild to moderate multilevel degenerative disc space height loss. Multilevel mild spinal canal stenosi s secondary to multilevel disc bulging and facet arthrosis. Multilevel mild neuroforaminal narrowing. Multilevel mild and moderate facet arthrosis. No soft tissue abnormality within the visualized abdomen or pelvis. The visualized abdominal aorta is normal caliber. IMPRESSION: No acute osseous abnormality of the lumbar spine. Electronically signed by: Amauri Jorgensen MD (07/02/2021 4:17 PM) JEAN MARIE
[2021-07-02 16:26] LABS: ALBUMIN 3.8 g/dL (3.4-5.0); TOTAL BILIRUBIN 0.2 mg/dL (0.2-1.0); TOTAL PROTEIN 7.8 g/dL (6.4-8.2)
[2021-07-02 16:57] LABS: BILIRUBIN,URINE NEGATIVE (NEG); CLARITY,URINE CLEAR; COLOR,URINE YELLOW; NITRITE,URINE NEGATIVE (NEG); PROTEIN,URINE NEGATIVE (NEG-TRACE); UROBILINOGEN,URINE 0.2 mg/dL (0.2 mg/dL)
[2021-07-02 17:04] LABS: BACTERIA,URINE FEW /HPF (0-FEW); RBC,URINE 0 /HPF (0-2); WBC,URINE OCC /HPF (0-4)
[2021-07-02] MEDS ORDERED: LIDO1ADH63 TP (17:55)
--- NOTE | 2021-07-02 17:56 | PHYS DOC ---
Past Medical History Past Medical History: Anxiety, GERD, High Cholesterol, Hypertension, TIA, Other Additional Past Medical Histor: Macular degeneration, vertigo,SMALL BOWEL OBSTRUCTION (HARESH CHADWICK APRN) Past Surgical History: Other Additional Past Surgical Histo: COLON IN SEP (HARESH CHADWICK APRN) Smoking Status: Never Smoker Alcohol Use: None Drug Use: None (HARESH CHADWICK APRN) General Adult EDM: Chief Complaint: BACK PAIN - NO INJURY HPI: HPI: Patient is a 81-year-old female who presents emergency department complaining of low back pain for the past month. Patient denies an initial injury that she can recall. Patient reports the pain just started coming along, states she seen her primary care physician 2 weeks ago, was told to start taking Tylenol for for pain. Patient reports a 6 out of 10 pain with minimal relief with taking Tylenol [id number] by mouth. Patient has not tried other nonpharmacological pain relief methods. Denies numbness or tingling to her buttocks or genitals, denies radiation of pain down her buttocks or down her lower extremities. Patient denies being a cigarette smoker, denies history of immunosuppression however does report a history of partial colon removal this past September related to cancer, patient denies a history of IV drug use, recent fever or chills, denies bowel or bladder incontinence or retention. Patient denies urinary burning, increased urinary frequency, denies pressure upon urination.. Denies other physical complaints or physical concerns. (HARESH CHADWICK APRN) Review of Systems: Review of Systems: 14 body systems of review of systems have been reviewed. See HPI for pertinent positives and negative responses, otherwise all other systems are negative, nonpertinent or noncontributory. Constitutional: Negative except as outlined in HPI above. Skin: Negative except as outlined in HPI above. Eyes: Negative except as outlined in HPI above. HENT: Negative except as outlined in HPI above. Respiratory: Negative except as outlined in HPI above. Cardiovascular: Negative except as outlined in HPI above. GI: Negative except as outlined in HPI above. : Negative except as outlined in HPI above. Musculoskeletal: Negative except as outlined in HPI above. Integument: Negative except as outlined in HPI above. Neurologic: Negative except as outlined in HPI above. Endocrine: Negative except as outlined in HPI above. Lymphatic: Negative except as outlined in HPI above. Psychiatric: Negative except as outlined in HPI above. (HARESH CHADWICK APRN) Heart Score: C/O Chest Pain: No Risk Factors: Risk Factors: DM, Current or recent (<one month) smoker, HTN, HLP, family history of CAD, obesity. Risk Scores: Score 0 - 3: 2.5% MACE over next 6 weeks - Discharge Home Score 4 - 6: 20.3% MACE over next 6 weeks - Admit for Clinical Observation Score 7 - 10: 72.7% MACE over next 6 weeks - Early Invasive Strategies (HARESH CHADWICK APRN) Current Medications: Current Medications Medications (Trade) Dose Ordered Sig/Mirna Start Time Stop Time Status Last Admin Dose Admin Acetaminophen (Tylenol) 650 mg 1X ONCE 07/02/21 15:15 07/02/21 15:16 DC 07/02/21 15:55 650 MG Lidocaine (Lidoderm) 1 patch 1X ONCE 07/02/21 15:15 07/02/21 15:16 DC 07/02/21 15:56 1 PATCH (HARESH CHADWICK APRN) Allergies: Allergies: Allergies Coded Allergies Type Severity Reaction Last Updated Verified No Known Drug Allergies 05/04/20 No (HARESH CHADWICK APRN) Physical Exam: PE: Constitutional: Well developed, well nourished, no acute distress, non-toxic appearance. 81-year-old female in no apparent distress. HENT: Normocephalic, atraumatic. Eyes: Conjunctiva normal, no discharge. Neck: Normal range of motion, no stridor. Cardiovascular: No cyanosis appreciated, distal cap refill less than 2 seconds. Lungs & Thorax: Patient is in no respiratory distress, no audible adventitious lung sounds appreciated. Abdomen: Nontender, no abnormalities noted. Skin: Warm, dry, no erythema, no rash. Back: No deformities appreciated, no edema or ecchymosis appreciated, no right- sided or left-sided CVA TTP, pain to palpation along lumbosacral skin surfaces, no other abnormalities appreciated. Distal cap refill less than 2 seconds, 2+ dorsalis pedis pulses bilaterally. Extremities: No tenderness, no cyanosis, no clubbing, ROM intact, no edema. Bilateral intact 5/5 motor strength with hip flexion, knee flexion, extension, knee adduction, plantar dorsiflexion at the ankle, dorsiflexion of the toes bilaterally. Neurologic: Alert and oriented X 3, normal motor function, normal sensory function, no focal deficits noted. Psychologic: Affect normal, judgement normal, mood normal. (HARESH CHADWICK APRN) Current Patient Data: Labs: Laboratory Tests Test 07/02/21 15:45 07/02/21 16:47 White Blood Count 8.3 x10^3/uL (4.0-11.0) Red Blood Count 5.21 x10^6/uL (3.50-5.40) Hemoglobin 15.4 g/dL (12.0-15.5) Hematocrit 48.2 % (36.0-47.0) H Mean Corpuscular Volume 93 fL (79-100) Mean Corpuscular Hemoglobin 30 pg (25-35) Mean Corpuscular Hemoglobin Concent 32 g/dL (31-37) Red Cell Distribution Width 14.7 % (11.5-14.5) H Platelet Count 140 x10^3/uL (140-400) Neutrophils (%) (Auto) 59 % (31-73) Lymphocytes (%) (Auto) 31 % (24-48) Monocytes (%) (Auto) 8 % (0-9) Eosinophils (%) (Auto) 1 % (0-3) Basophils (%) (Auto) 1 % (0-3) Neutrophils # (Auto) 4.9 x10^3/uL (1.8-7.7) Lymphocytes # (Auto) 2.6 x10^3/uL (1.0-4.8) Monocytes # (Auto) 0.7 x10^3/uL (0.0-1.1) Eosinophils # (Auto) 0.1 x10^3/uL (0.0-0.7) Basophils # (Auto) 0.0 x10^3/uL (0.0-0.2) Sodium Level 139 mmol/L (136-145) Potassium Level 4.1 mmol/L (3.5-5.1) Chloride Level 104 mmol/L (98-107) Carbon Dioxide Level 24 mmol/L (21-32) Anion Gap 11 (6-14) Blood Urea Nitrogen 18 mg/dL (7-20) Creatinine 0.7 mg/dL (0.6-1.0) Estimated GFR (Cockcroft-Gault) 80.1 BUN/Creatinine Ratio 26 (6-20) H Glucose Level 100 mg/dL (70-99) H Calcium Level 9.2 mg/dL (8.5-10.1) Total Bilirubin 0.2 mg/dL (0.2-1.0) Aspartate Amino Transferase (AST) 23 U/L (15-37) Alanine Aminotransferase (ALT) 43 U/L (14-59) Alkaline Phosphatase 118 U/L (46-116) H Total Protein 7.8 g/dL (6.4-8.2) Albumin 3.8 g/dL (3.4-5.0) Albumin/Globulin Ratio 1.0 (1.0-1.7) Urine Collection Type Unknown Urine Color Yellow Urine Clarity Clear Urine pH 7.0 (<5.0-8.0) Urine Specific Briscoe <=1.005 (1.000-1.030) Urine Protein Negative mg/dL (NEG-TRACE) Urine Glucose (UA) Negative mg/dL (NEG) Urine Ketones (Stick) Negative mg/dL (NEG) Urine Blood Negative (NEG) Urine Nitrite Negative (NEG) Urine Bilirubin Negative (NEG) Urine Urobilinogen Dipstick 0.2 mg/dL (0.2 mg/dL) Urine Leukocyte Esterase Negative (NEG) Urine RBC 0 /HPF (0-2) Urine WBC Occ /HPF (0-4) Urine Squamous Epithelial Cells Few /LPF Urine Bacteria Few /HPF (0-FEW) Laboratory Tests 07/02/21 15:45 Laboratory Tests 07/02/21 15:45 Vital Signs: Vital Signs Date Time Temp Pulse Resp B/P (MAP) Pulse Ox O2 Delivery O2 Flow Rate FiO2 07/02/21 14:52 97.5 93 16 184/81 (115) 98 Room Air 97.5 (HARESH CHADWICK APRN) EKG: EKG: [] (HARESH CHADWICK APRN) Radiology/Procedures: Radiology/Procedures: REASON: Low back pain lumbar sacral area PROCEDURE: CT LUMBAR SPINE WO CONTRAST CT LUMBAR SPINE WO Date: 07/02/2021 3:38 PM Indication: Low back pain lumbar sacral area Comparison: None. Technique: Helical CT images of the lumbar spine were obtained without contrast. Coronal and sagittal reformatted images were also performed. One or more of the following dose reduction techniques were utilized: Automated exposure control (AEC), Adjustment of mA and/or kV according to patient size, Use of iterative reconstruction technique such as ASiR, CT scan done according to ALARA and image gently/image wisely. Findings: The lumbar spine is normally aligned. No acute fracture. Vertebral body heights are maintained without compression deformity. No aggressive lytic or blastic osseous lesion. Mild to moderate multilevel degenerative disc space height loss. Multilevel mild spinal canal stenosis secondary to multilevel disc bulging and facet arthrosis. Multilevel mild neuroforaminal narrowing. Multilevel mild and moderate facet arthrosis. No soft tissue abnormality within the visualized abdomen or pelvis. The visualized abdominal aorta is normal caliber. IMPRESSION: No acute osseous abnormality of the lumbar spine. Electronically signed by: Amauri Jorgensen MD (07/02/2021 4:17 PM) [facility] (HARESH CHADWICK APRN) Course & Med Decision Making: Course & Med Decision Making Pertinent Labs and Imaging studies reviewed. (See chart for details) 81-year-old female, vital signs reviewed, resents emerged from concerning low back pain, nontraumatic. Physical examination consistent with lumbago without sciatica. Will give p.o. Tylenol with lidocaine patch, CBC, CMP, urinalysis ass ay, CT lumbar spine without contrast. CT lumbar spine without contrast unremarkable, CBC and CMP unremarkable, the patient's urine is not infected, upon reevaluation of the patient, the patient reports total pain relief with lidocaine patch and Tylenol given in the ED today. Discussed with patient all findings, will prescribe lidocaine patch, discussed strict follow-up with primary care related to today's ER visit for ongoing evaluation and pain care management. Return to ER precautions and c oncerns were reviewed. Patient gave verbal understanding of and are amenable to ED discharge planning. Discussed with the patient all findings and diagnostic testing as well as the need to follow-up with their primary care provider for further evaluation and treatment or return to the ED if any new or worsening symptoms. Strict return precautions were also discussed at length, the patient voiced understanding and agreement with the discharge planning. The patient was nontoxic in appearance, in no apparent distress, and hemodynamically stable at the time of disposition. (HARESH CHADWICK APRN) Course & Med Decision Making Reviewed case and documentation with ALLAN and agree with above with the following addition: Per discussion with ALLAN patient was neurologically intact without lower extremity weakness on examination. No fever, chills, IVDU or other active immunosuppresion to suggest spinal epidural abscess. CT imaging was negative. No emergent indication for MRI. (FELIX MCGOWAN MD) Dragon Disclaimer: Dragon Disclaimer: This electronic medical record was generated, in whole or in part, using a voice recognition dictation system. (HARESH CHADWICK APRN) Departure Departure Impression: Primary Impression: Low back pain Disposition: HOME / SELF CARE / HOMELESS Condition: GOOD Referrals: OTIS LINTON MD (PCP) Patient Instructions: Back Pain, Adult Additional Instructions: You were seen today in the emergency department for low back pain. A CT scan did not reveal any broken bones or other bony abnormalities that would require immediate attention by a bone specialist or admission to the hospital. Please follow-up with your primary care physician to let him know about your visit today in the emergency department and to let Dr. Sruthi Linton know you were started on lidocaine patches for pain control. Please use prescription medications as directed. Return to the emergency department for worsening symptoms or other concerns. Thank you for visiting our Emergency Department. It was a pleasure taking care of you today in the emergency department and we appreciate you trusting us with your care. If any additional problems come up don't hesitate to return to visit us. Please follow up with your primary care provider so they can plan additional care if needed and know about the problem that you had. If symptoms worsen come back to the Emergency Department. Any concerning symptoms that start such as chest pain, shortness of air, weakness or numbness on one side of the body, running high fevers or any other concerning symptoms return to the ER. EMERGENCY DEPARTMENT GENERAL DISCHARGE INSTRUCTIONS Thank you for coming to [facility] Emergency Department (ED) myriam amaya and trusting us with you care. We trust that you had a positive experience in our Emergency Department. If you wish to speak to the department management, you may call the Director at [phone]. YOUR FOLLOW UP INSTRUCTIONS ARE FOLLOWS: 1. Do you have a private Doctor? If you do not have a private doctor, please ask for a resource list of physicians or clinics that may be able to assist you with follow up care. 2. The Emergency Physicain has interpreted your x-rays. The X-Ray specialist will also review them. If there is a change in the findings, you will be notified in 48 hours when at all possible. 3. A lab test or culture has been done, your results will be reviewed and you will be notified if you need a change in treatment. ADDITIONAL INSTRUCTIONS AND INFORMATION: 1. Your care today has been supervised by a physician who is specially trained in emergency care. Many problems require more than one evaluation for a complete diagnosis and treatment. We recommend that you schedule your follow up appointment as recommended to ensure complete treatment of you illness or injury. If you are unable to obtain follow up care and continue to have a problem, or if your condition worsens, we recommend that you return to the ED. 2. We are not able to safely determine your condition over the phone nor are we able to give sound medical advice over the phone. For these safety reasons, if you call for medical advice we will ask you to come to the ED for further evaluation. 3. If you have any questions regarding these discharge instructions please call the ED at [phone]. SAFETY INFORMATION: In the interest of safety, wellness, and injury prevention; we encourage you to wear your sealbelt, if you smoke; quite smoking, and we encourage family to use a protective helmet for bicycling and other sporting events that present an increased risk for head injury. IF YOUR SYMPTOMS WORSEN OR NEW SYMPTOMS DEVELOP, OR YOU HAVE CONCERNS ABOUT YOUR CONDITION; OR IF YOUR CONDITION WORSENS WHILE YOU ARE WAITING FOR YOUR FOLLOW UP APPOINTME NT; EITHER CONTACT YOUR PRIMARY CARE DOCTOR, THE PHYSICIAN WHOSE NAME AND NUMBER YOU WERE GIVEN, OR RETURN TO THE ED IMMEDIATELY. Scripts Lidocaine (Lidocaine) 1 Each Adh..patch 1 EACH TP DAILY for low back pain, #[address] 1 patch over sore area daily for 12 hours then remove. Prov: HARESH CHADWICK APRN 07/02/21 HARESH CHADWICK APRN Jul 02, 2021 17:56 FELIX MCGOWAN MD Jul 02, 2021 18:28
[2021-07-02 18:00] VITALS: BP 179/77
== END 2021-07-02 18:02 | disposition home or self-care (01) ==
LOC: ER 13:32
DX: M54.50 Low back pain, unspecified (principal); K21.9 Gastro-esophageal reflux disease without esophagitis; E78.00 Pure hypercholesterolemia, unspecified; I10 Essential (primary) hypertension; Z86.73 Personal history of transient ischemic attack (TIA), and cerebral infarction without residual deficits; F17.210 Nicotine dependence, cigarettes, uncomplicated
CPT/HCPCS: 36415; 72131; 80053; 81001; 85025; 99284-25

== ENCOUNTER → 2021-08-16 | Outpatient (CLI) | payer BC, OTHER ==
[~2021-08-16] MED LIST changes: +CONTRAST GIVEN. MC PRN; +IOHEXOL 240 MG/ML 50ML VIAL. PO ONE; +IOHEXOL 300 MG/ML 100ML VIAL. IV ONE; +LIDO1ADH63 TP
--- NOTE | 2021-08-16 11:50 | RAD ---
CT CHEST+ABD+PELVIS W History: Small bowel malignancy. Comparison: CT chest abdomen and pelvis 03/20/2021. CT abdomen and pelvis 04/05/2020. Technique: CT of the chest, abdomen and pelvis with oral and intravenous contrast. Findings: Chest: Pulmonary arteries: Unremarkable. Aorta and great vessels: No aneurysm of the aortic arch or thoracic aorta is seen. Mild atherosclerot ic calcification. Heart: The heart is normal in size. There is no pericardial effusion. Mild coronary artery calcificat ion. Thyroid: No significant abnormalities. Mediastinum and sona: No mediastinal masses or adenopathy is seen. Esophagus: Small persistent versus reflux contrast in the esophagus. Airways, Lungs, Pleura: Mild emphysematous change. No significant change in approximately 13 x 6 mm r ight lower lobe nodular opacity. No significant new pulmonary nodule. No airspace consolidation or pl eural effusion. Soft tissue and osseous: Unremarkable. Abdomen/Pelvis: General abdomen: No ascites. No free air. Liver : Normal in size and attenuation. No masses seen. Gallbladder/Biliary Tree: Status post cholecystectomy. No intrahepatic or extrahepatic biliary ductal dilatation. Pancreas: Normal. Spleen: Normal in size and attenuation. Adrenal glands: Normal. Kidneys: Exophytic posterior right renal cyst and additional bilateral subcentimeter hypodensities to o small to characterize, likely cysts. Gastrointestinal: Unremarkable stomach. Small bowel is without evidence of obstruction. Ileocolic antonio stomosis in the right abdomen is patent. Mild colonic stool burden. Mild diverticulosis. No colonic w all thickening or pericolonic inflammatory changes. Lymph nodes: Prominent lymph node anterior to the left adrenal gland measures 9 mm short axis, unchan ged from priors. Vessels: Unremarkable. Pelvic Organs: Status post hysterectomy. No pelvic masses. The bladder is unremarkable. Soft tissues: Progressive protrusion of a loop of small bowel through a midline lower abdominal wall incisional hernia versus focal diastases. Bones: No acute or aggressive lesions. Degenerative changes greatest at L5-S1. Impression: 1. No evidence of metastatic disease. No acute findings in the chest, abdomen and pelvis. 2. Protrusion of a loop of small bowel through a midline lower abdominal incisional hernia versus di astases, progressive from comparisons. No evidence of obstruction. ------ Exposure: One or more of the following individualized dose reduction techniques were utilized for thi s examination: 1. Automated exposure control 2. Adjustment of the mA and/or kV according to patient size 3. Use of iterative reconstruction technique. Electronically signed by: Eulalio Martin MD (08/16/2021 11:47 AM) [facility]
== END ==
LOC: CT 09:20
PROVIDERS: ATTEND Internal Medicine Hematology & Oncology
DX: C17.1 Malignant neoplasm of jejunum (principal); J43.9 Emphysema, unspecified; I25.10 Atherosclerotic heart disease of native coronary artery without angina pectoris; I70.0 Atherosclerosis of aorta; K57.30 Diverticulosis of large intestine without perforation or abscess without bleeding; K63.89 Other specified diseases of intestine; N28.1 Cyst of kidney, acquired; M47.817 Spondylosis without myelopathy or radiculopathy, lumbosacral region; Z90.49 Acquired absence of other specified parts of digestive tract
CPT/HCPCS: 71260; 74177; Q9966; Q9967

== ENCOUNTER → 2021-09-10 | Outpatient (CLI) | payer BC, OTHER ==
[~2021-09-10] MED LIST changes: -CONTRAST GIVEN. MC PRN; -IOHEXOL 240 MG/ML 50ML VIAL. PO ONE; -IOHEXOL 300 MG/ML 100ML VIAL. IV ONE
[2021-09-10 10:06] LABS: BASO % 0 % (0-3); EOS # 0.1 x10^3/uL (0.0-0.7); EOS % 1 % (0-3); HEMATOCRIT 43.8 % (36.0-47.0); HEMOGLOBIN 14.6 g/dL (12.0-15.5); LYMPH # 2.1 x10^3/uL (1.0-4.8); LYMPH % 28 % (24-48); MEAN CORPUSCULAR HEMOGLOBIN 30 pg (25-35); MEAN CORPUSCULAR HGB CONC 33 g/dL (31-37); MEAN CORPUSCULAR VOLUME 91 fL (79-100); MONO # 0.5 x10^3/uL (0.0-1.1); MONO % 7 % (0-9); NEUT # 4.6 x10^3/uL (1.8-7.7); NEUT % 63 % (31-73); PLATELET COUNT 154 x10^3/uL (140-400); RED BLOOD COUNT 4.82 x10^6/uL (3.50-5.40); WHITE BLOOD COUNT 7.3 x10^3/uL (4.0-11.0)
[2021-09-10 10:11] LABS: CALCIUM 8.6 mg/dL (8.5-10.1); CREATININE 0.7 mg/dL (0.6-1.0); GFR 80.1; POTASSIUM 4.1 mmol/L (3.5-5.1)
[2021-09-10 10:17] LABS: ALBUMIN 3.5 g/dL (3.4-5.0); ALBUMIN/GLOBULIN RATIO 0.8 (1.0-1.7); TOTAL BILIRUBIN 0.3 mg/dL (0.2-1.0); TOTAL PROTEIN 7.8 g/dL (6.4-8.2)
== END ==
LOC: ONCLAB 09:33
PROVIDERS: ATTEND Internal Medicine Hematology & Oncology
DX: C17.1 Malignant neoplasm of jejunum (principal)
CPT/HCPCS: 36415; 80053; 82378; 85025

== ENCOUNTER → 2021-11-01 | Day surgery (SDC) | payer BC, OTHER ==
[~2021-11-01] VITALS: Ht 172.7 cm; Wt 90.5 kg
[~2021-11-01] MED LIST changes: +COLE1TAB2 PO; +FAMO40TA57 PO; +IV RINGERS,LACTATED 1000ML 1,000 ML IV SCH; +PROPOFOL 10 MG/ML (20ML) VIAL. IV ONE
[2021-11-01 08:55] VITALS: BP 186/71
[2021-11-01 09:58] VITALS: BP 141/78
--- NOTE | 2021-11-02 12:13 | PATHOLOGY ---
[facility] Accession Number: [id number] . 01 Material submitted: . PART A: small bowel - SMALL BOWEL BIOPSY PART B: stomach - ANTRUM AND BODY BIOPSY PART C: esophagus - DISTAL ESOPHAGUS BIOPSY. Modifiers: distal . 01 Clinical history: . GI METAPLASIA, GERD, HIATAL HERNIA . 02 Diagnosis: A. Small bowel biopsy: - No significant pathologic abnormalities. . B. Gastric biopsies, gastric body and antrum: - Chronic gastritis, mild to moderate, with focal intestinal metaplasia. . C. Esophageal biopsy, distal esophagus: - Segment of esophagogastric mucosa showing chronic inflammation. (JPM:nia; 11/02/2021) S 11/02/2021 1000 Local . 02 Comment: Sections of the small bowel biopsy reveal segments of duodenal and small intestine mucosa. Where best oriented, the mucosal villi show no sprue-like changes or significant inflammatory changes. . Sections of the gastric biopsy reveal segments of gastric body and gastric antral mucosa showing mild to moderate chronic inflammation and focal intestinal metaplasia. A properly controlled immunoperoxidase stain for Helicobacter is negative for Helicobacter organisms. There is no dysplasia or evidence of malignancy. . Sections of the distal esophageal biopsy reveal a segment of esophagogastric mucosa showing mild to moderate chronic inflammation. The findings are consistent with reflux changes. There is no evidence of Altamirano's change, dysplasia, or malignancy. (JPM:nia; 11/02/2021) . . Special stain performed: Immunoperoxidase stain for Helicobacter on B1 . Electronically signed: . Lenny Garcia MD, Pathologist NPI- [id number] . 01 Gross description: . A. The specimen is received in formalin, labeled "Holly Holt, small bowel biopsy". Received are five segments of pale gomez tissue ranging in size from 0.2-0.6 cm in maximum dimensions. The specimen is submitted entirely in cassette A1. . B. The specimen is received in formalin, labeled "Holly Jonathon, antrum and body biopsy". Received are multiple segments of pale gomez tissue ranging in size from 0.3-0.5 cm in maximum dimensions. The specimen is submitted entirely in cassette B1. . C. The specimen is received in formalin, labeled "Holly Jonathon, distal esophagus biopsy". Received is a segment of pale gomez tissue measuring 0.5 cm in maximum dimensions. The specimen is submitted entirely in cassette C1. (CAA; 11/01/2021) QAC/QAC 11/02/2021 0954 Local . 02 Pathologist provided ICD-10: K29.50, K20.90 . 02 CPT . 656377, 378011, [id number], [id number] Specimen Comment: A courtesy copy of this report has been sent to [phone], [phone] Specimen Comment: [id number] Specimen Comment: Report sent to / DR CHRISTENSEN Specimen Comment: A duplicate report has been generated due to demographic updates. Performed at: 01 [facility] [address], [place] [id number] MD Willie Patel MD Phone: [phone] Performed at: 02 [facility] [address] [place], [place] [id number] MD Lenny Garcia MD Phone: [phone]
== END | disposition home or self-care (01) ==
LOC: ENDOS 08:37
PROVIDERS: ATTEND Internal Medicine Gastroenterology
DX: K21.00 Gastro-esophageal reflux disease with esophagitis, without bleeding (principal); K29.50 Unspecified chronic gastritis without bleeding; K31.89 Other diseases of stomach and duodenum; K44.9 Diaphragmatic hernia without obstruction or gangrene; I10 Essential (primary) hypertension; E78.00 Pure hypercholesterolemia, unspecified; F41.9 Anxiety disorder, unspecified; F32.9 Major depressive disorder, single episode, unspecified; E66.9 Obesity, unspecified; Z86.73 Personal history of transient ischemic attack (TIA), and cerebral infarction without residual deficits; Z90.49 Acquired absence of other specified parts of digestive tract; Z98.890 Other specified postprocedural states; Z79.899 Other long term (current) drug therapy; Z87.891 Personal history of nicotine dependence; Z88.8 Allergy status to other drugs, medicaments and biological substances
CPT/HCPCS: 43239; 88305; 88342; J2704

== ENCOUNTER → 2021-12-10 | Outpatient (CLI) | payer BC, OTHER ==
[2021-11-01 09:58] VITALS: BP 141/78
[~2021-12-10] MED LIST changes: -IV RINGERS,LACTATED 1000ML 1,000 ML IV SCH; -PROPOFOL 10 MG/ML (20ML) VIAL. IV ONE
[2021-12-10 10:56] LABS: BASO % 1 % (0-3); EOS # 0.1 x10^3/uL (0.0-0.7); EOS % 1 % (0-3); HEMATOCRIT 45.7 % (36.0-47.0); HEMOGLOBIN 15.4 g/dL (12.0-15.5); LYMPH # 2.1 x10^3/uL (1.0-4.8); LYMPH % 33 % (24-48); MEAN CORPUSCULAR HEMOGLOBIN 30 pg (25-35); MEAN CORPUSCULAR HGB CONC 34 g/dL (31-37); MEAN CORPUSCULAR VOLUME 89 fL (79-100); MONO # 0.5 x10^3/uL (0.0-1.1); MONO % 7 % (0-9); NEUT # 3.8 x10^3/uL (1.8-7.7); NEUT % 58 % (31-73); PLATELET COUNT 148 x10^3/uL (140-400); RED BLOOD COUNT 5.13 x10^6/uL (3.50-5.40); RED CELL DISTRIBUTION WIDTH 14.4 % (11.5-14.5); WHITE BLOOD COUNT 6.6 x10^3/uL (4.0-11.0)
[2021-12-10 10:58] LABS: CALCIUM 9.2 mg/dL (8.5-10.1); CREATININE 0.8 mg/dL (0.6-1.0); GFR 68.7; POTASSIUM 4.1 mmol/L (3.5-5.1)
[2021-12-10 11:04] LABS: ALBUMIN 3.6 g/dL (3.4-5.0); ALBUMIN/GLOBULIN RATIO 0.8 (1.0-1.7); TOTAL BILIRUBIN 0.5 mg/dL (0.2-1.0); TOTAL PROTEIN 7.9 g/dL (6.4-8.2)
== END ==
LOC: ONCLAB 10:27
PROVIDERS: ATTEND Internal Medicine Hematology & Oncology
DX: C17.1 Malignant neoplasm of jejunum (principal)
CPT/HCPCS: 36415; 80053; 82378; 85025